=== PATIENT | female | born 1935 | race Caucasian/White ===

== ENCOUNTER 2019-02-24 19:04 | Inpatient (IN) | payer OTHER ==
[2019-02-24 20:11] LABS: Absolute Lymphocytes (CBC) 0.6 K/uL (0.7-4.9); Absolute Monocytes 0.6 K/uL (0.1-1.3); Absolute Neutrophil 8.1 K/uL (1.8-8.0); Basophils % 0.5 % (0-1.3); Eosinophils % 0.1 % (0-4.4); Hematocrit 39.3 % (36.0-45.0); Lymphocytes % 6.2 % (15.3-44.8); MPV 7.6 fL (7.6-11.3); RBC Red Blood Cell Count 4.33 M/uL (3.86-4.86)
--- NOTE | 2019-02-24 20:12 | RAD REPORT ---
EXAM DESCRIPTION: RAD - Chest Single View - 02/24/2019 7:56 pm CLINICAL HISTORY: COUGH Chest pain. COMPARISON: Chest Pa And Lat (2 Views) dated 07/08/2017; CHEST PA AND LAT 2 VIEW dated 08/23/2012 FINDINGS: Portable technique limits examination quality. Emphysematous changes are present throughout the lungs, unchanged. The heart is normal in size. No di splaced fractures. IMPRESSION: Prominent COPD.
--- NOTE | 2019-02-24 20:16 | ER ---
Nurse's Notes [facility] Name: Junito James Age: 83 yrs Sex: Female : 1935 Arrival Date: 02/24/2019 Time: 19:09 Bed 28 Private MD: Diagnosis: Pneumonia in diseases classified elsewhere;Hypoxemia Presentation: 02/24 19:12 Presenting complaint: Patient states: Productive cough, chills, low grade fever for 2 aj days. Transition of care: patient was not received from another setting of care. Onset of symptoms was February 22, 2019. Risk Assessment: Do you want to hurt yourself or someone else? Patient reports no desire to harm self or others. Initial Sepsis Screen: Does the patient meet any 2 criteria? HR > 90 bpm. Does the patient have a suspected source of infection? Yes: Productive cough/pneumonia. Care prior to arrival: None. 19:12 Method Of Arrival: Wheelchair aj 19:12 Acuity: SAUMYA 3 aj Triage Assessment: 19:14 General: Appears in no apparent distress. comfortable, Behavior is calm, cooperative, aj appropriate for age. Pain: Denies pain. Neuro: Level of Consciousness is awake, alert, obeys commands, Oriented to person, place, time, situation, Appropriate for age. Respiratory: Reports cough that is productive, Airway is patent Respiratory effort is even, unlabored, Respiratory pattern is regular, symmetrical. Derm: Skin is intact, Skin is dry, Skin is normal, Skin temperature is hot. Historical: - Allergies: 19:14 No Known Allergies; aj - Immunization history:: Adult Immunizations up to date. - Social history:: Smoking status: unknown. - Ebola Screening: : Patient negative for fever greater than or equal to 101.5 degrees Fahrenheit, and additional compatible Ebola Virus Disease symptoms. Screenin:32 Abuse screen: Denies threats or abuse. Nutritional screening: No deficits noted. jd3 Tuberculosis screening: No symptoms or risk factors identified. Fall Risk Ambulatory Aid- Crutches/Cane/Walker (15 pts). Gait- Weak (10 pts.). Mental Status- Oriented to own ability (0 pts). Total Deras Fall Scale indicates Low Risk Score (25-44 pts). Fall prevention measures have been instituted. Side Rails Up X 2 Placed close to Nursing Station Frequent Obs/Assesments occuring Family Present and informed to notify staff if they need to leave bedside. Assessment: 19:27 General: Appears uncomfortable, ill, Behavior is calm, cooperative, appropriate for jd3 age, Reports fatigue for 2-3 days, cough for 3 days. Pain: Complains of pain in head, and gerneralized pain. Quality of pain is described as aching. Neuro: Level of Consciousness is awake, alert, obeys commands, Oriented to person, place, time, situation. Cardiovascular: Heart tones S1 S2 present Capillary refill < 3 seconds Patient's skin is warm and dry. Respiratory: Reports cough that is non-productive, persistent Airway is patent Respiratory effort is even, unlabored, Respiratory pattern is regular, symmetrical, Breath sounds with crackles bilaterally. Denies shortness of breath. GI: No signs and/or symptoms were reported involving the gastrointestinal system. : No signs and/or symptoms were reported regarding the genitourinary system. EENT: No signs and/or symptoms were reported regarding the EENT system. Derm: Skin is intact, Skin is dry, Skin is pale, Skin temperature is warm. Musculoskeletal: Circulation, motion, and sensation intact. Range of motion: intact in all extremities. 20:12 Reassessment: No changes from previously documented assessment. Patient and/or family jd3 updated on plan of care and expected duration. Pain level reassessed. Patient is alert, oriented x 3, equal unlabored respirations, skin warm/dry/pink. family leaving. 20:37 Reassessment: D dimer 1128, told dr moon. jd3 21:16 Reassessment: Patient appears in no apparent distress at this time. Patient and/or jd3 family updated on plan of care and expected duration. Pain level reassessed. Patient is alert, oriented x 3, equal unlabored respirations, skin warm/dry/pink. pt resting in bed with eyes closed, even and unlabored respirations, no distress noted at this time. 21:29 Reassessment: family at bedside. jd3 22:03 Reassessment: Patient appears in no apparent distress at this time. Patient and/or jd3 family updated on plan of care and expected duration. Pain level reassessed. Patient is alert, oriented x 3, equal unlabored respirations, skin warm/dry/pink. report given to Harper COLLINS. 22:23 Reassessment: Patient appears in no apparent distress at this time. Patient and/or jd3 family updated on plan of care and expected duration. Pain level reassessed. Patient is alert, oriented x 3, equal unlabored respirations, skin warm/dry/pink. pt transported to floor by stretcher with [facility]. Vital Signs: 19:14 BP 153 / 83; Pulse 127; Resp 20; Temp 99.3(O); Pulse Ox 97% on R/A; Weight 47.63 kg; aj Height 5 ft. 1 in. (154.94 cm); 19:24 Pulse Ox 89% on R/A; jd3 19:26 BP 170 / 83; Pulse 115; Resp 20 S; Pulse Ox 94% on 2 lpm NC; jd3 20:12 BP 177 / 71; Pulse 105; Resp 21 S; Pulse Ox 96% on 2 lpm NC; Pain 5/10; jd3 21:16 BP 171 / 76; Pulse 101; Resp 19 S; Pulse Ox 97% on 2 lpm NC; Pain 0/10; jd3 22:25 BP 151 / 75; Pulse 101; Resp 21 S; Pulse Ox 97% on 2 lpm NC; Pain 0/10; jd3 19:14 Body Mass Index 19.84 (47.63 kg, 154.94 cm) aj 19:24 pt placed on oxygen. provider notified. jd3 ED Course: 19:09 Patient arrived in ED. ag3 19:13 Triage completed. aj 19:14 Arm band placed on left wrist. Patient placed in an exam room. aj 19:24 Luis Lazar, DENNIS is Primary Nurse. jd3 19:32 Orlando Moon MD is Attending Physician. tw4 19:33 Patient has correct armband on for positive identification. Placed in gown. Bed in low jd3 position. Call light in reach. Side rails up X 1. Adult w/ patient. 19:55 XRAY CXR (1 view) In Process Unspecified. EDMS 20:00 Inserted saline lock: 20 gauge in left antecubital area, using aseptic technique. Blood jd3 collected. 20:14 Darío Delacruz MD is Hospitalizing Provider. tw4 22:04 No provider procedures requiring assistance completed. Patient admitted, IV remains in jd3 place. Administered Medications: 20:29 Not Given (Other Intervention Used): Rocephin - (cefTRIAXone) 1 grams IVPB once over 30 jd3 mins; (mix in 50 mL NS) 20:30 Drug: Rocephin 1 grams Route: IV; Rate: calculated rate; Site: left antecubital; jd3 20:32 Follow up: Response: No adverse reaction; IV Status: Completed infusion; IV Intake: [id number] 20:32 Drug: LevaQUIN 500 mg Volume: 100 ml; Route: IVPB; Infused Over: 60 mins; Site: left jd3 antecubital; 21:19 Follow up: Response: No adverse reaction; IV Status: Completed infusion; IV Intake: jd3 100ml Intake: 20:32 IV: 10ml; Total: 10ml. jd3 21:19 IV: 100ml; Total: 110ml. jd3 Outcome: 20:15 Decision to Hospitalize by Provider. tw4 22:04 Admitted to Tele accompanied by tech, via stretcher, room 427, with oxygen, with chart, jd3 Report called to Harper COLLINS 22:04 Condition: stable 22:04 Instructed on the need for admit, Demonstrated understanding of instructions. 22:26 Patient left the ED. jd3 Signatures: Dispatcher [employer] EDDorys Alvarenga RN RN aj Davies, Jonathon, RN RN jd3 Wadley, Terrence, MD MD tw4 Antonia Allan ag3 Corrections: (The following items were deleted from the chart) 21:30 20:12 Reassessment: No changes from previously documented assessment. Patient and/or jd3 family updated on plan of care and expected duration. Pain level reassessed. Patient is alert, oriented x 3, equal unlabored respirations, skin warm/dry/pink. jd3
--- NOTE | 2019-02-24 20:16 | EDPHYS ---
Physician Documentation [facility] Name: Junito James Age: 83 yrs Sex: Female : 1935 Arrival Date: 02/24/2019 Time: 19:09 Bed 28 Private MD: ED Physician Orlando Rodríguez HPI: 02/25 07:12 This 83 yrs old Female presents to ER via Wheelchair with complaints of tw4 Cough, Dizziness. 07:12 The patient or guardian reports cough. Onset: The symptoms/episode began/occurred 1 tw4 week(s) ago. Severity of symptoms: At their worst the symptoms were moderate, in the emergency department the symptoms are unchanged. Modifying factors: The symptoms are alleviated by nothing, the symptoms are aggravated by nothing. The patient has not experienced similar symptoms in the past. Historical: - Allergies: 02/24 19:14 No Known Allergies; aj - Immunization history:: Adult Immunizations up to date. - Social history:: Smoking status: unknown. - Ebola Screening: : Patient negative for fever greater than or equal to 101.5 degrees Fahrenheit, and additional compatible Ebola Virus Disease symptoms. ROS: 02/25 07:12 Constitutional: Negative for fever, chills, and weight loss, Eyes: Negative for injury, tw4 pain, redness, and discharge, Cardiovascular: Negative for chest pain, palpitations, and edema, Abdomen/GI: Negative for abdominal pain, nausea, vomiting, diarrhea, and constipation, Back: Negative for injury and pain, Neuro: Negative for headache, weakness, numbness, tingling, and seizure, Psych: Negative for depression, anxiety, suicide ideation, homicidal ideation, and hallucinations. Respiratory: Positive for cough. Exam: 07:12 Constitutional: This is a well developed, well nourished patient who is awake, alert, tw4 and in no acute distress. Head/Face: Normocephalic, atraumatic. Chest/axilla: Normal chest wall appearance and motion. Nontender with no deformity. No lesions are appreciated. Cardiovascular: Regular rate and rhythm with a normal S1 and S2. No gallops, murmurs, or rubs. Normal PMI, no JVD. No pulse deficits. 07:12 Respiratory: the patient does not display signs of respiratory distress, Respirations: normal, Breath sounds: rhonchi, that are moderate, are heard in the right posterior middle lobe and right posterior lower lobe. Vital Signs: 02/24 19:14 BP 153 / 83; Pulse 127; Resp 20; Temp 99.3(O); Pulse Ox 97% on R/A; Weight 47.63 kg; aj Height 5 ft. 1 in. (154.94 cm); 19:24 Pulse Ox 89% on R/A; jd3 19:26 BP 170 / 83; Pulse 115; Resp 20 S; Pulse Ox 94% on 2 lpm NC; jd3 20:12 BP 177 / 71; Pulse 105; Resp 21 S; Pulse Ox 96% on 2 lpm NC; Pain 5/10; jd3 21:16 BP 171 / 76; Pulse 101; Resp 19 S; Pulse Ox 97% on 2 lpm NC; Pain 0/10; jd3 22:25 BP 151 / 75; Pulse 101; Resp 21 S; Pulse Ox 97% on 2 lpm NC; Pain 0/10; jd3 19:14 Body Mass Index 19.84 (47.63 kg, 154.94 cm) aj 19:24 pt placed on oxygen. provider notified. jd3 MDM: 19:32 Patient medically screened. 4 02/25 07:12 Differential Diagnosis: Obstructed Airway Influenza. Data reviewed: vital signs, EMS tw4 record. Counseling: I had a detailed discussion with the patient and/or guardian regarding: the historical points, exam findings, and any diagnostic results supporting the discharge/admit diagnosis. Medical screen evaluation completed. EMTALA emergency medical condition absent. Physician consultation: Darío Delacruz MD regarding admission, need to come to ED to see patient, and will see patient in ED. Admission orders: after a detailed discussion of the patient's condition and case, the admit orders are written by me. 02/24 19:37 Order name: Blood Culture Adult (2) 02/24 19:37 Order name: BMP 02/24 19:37 Order name: CBC with Diff 02/24 19:37 Order name: Ckmb 02/24 19:37 Order name: CPK 02/24 19:37 Order name: D-Dimer 02/24 19:37 Order name: Hepatic Function 02/24 19:37 Order name: Lipase 02/24 19:37 Order name: Magnesium tw4 02/24 19:37 Order name: NT PRO-BNP tw4 02/24 19:37 Order name: PT-INR tw4 02/24 19:37 Order name: Ptt, Activated tw4 02/24 19:37 Order name: Troponin (emerg Dept Use Only) tw4 02/24 20:14 Order name: Manual Differential EDMS 02/24 19:37 Order name: XRAY CXR (1 view) tw4 02/24 19:37 Order name: EKG; Complete Time: 19:39 tw4 02/24 19:37 Order name: Cardiac monitoring; Complete Time: 20:10 tw4 02/24 19:37 Order name: EKG - Nurse/Tech; Complete Time: 20:10 tw4 02/24 21:07 Order name: Basic Metabolic Panel EDMS 02/24 21:07 Order name: Basic Metabolic Panel EDMS 02/24 21:07 Order name: CBC with Automated Diff EDMS 02/24 21:07 Order name: CBC with Automated Diff EDMS 02/24 21:07 Order name: NT PRO-BNP EDMS 02/24 21:07 Order name: NT PRO-BNP EDMS 02/24 21:07 Order name: Troponin I EDMS 02/24 21:07 Order name: Troponin I EDMS 02/24 21:07 Order name: Troponin I EDMS 02/24 19:37 Order name: IV Saline Lock; Complete Time: 20:10 tw4 02/24 19:37 Order name: Labs collected and sent; Complete Time: 20:10 tw4 02/24 19:37 Order name: O2 Per Protocol; Complete Time: 20:10 tw4 02/24 19:37 Order name: O2 Sat Monitoring; Complete Time: 20:10 tw4 Administered Medications: 02/24 20:29 Not Given (Other Intervention Used): Rocephin - (cefTRIAXone) 1 grams IVPB once over 30 jd3 mins; (mix in 50 mL NS) 20:30 Drug: Rocephin 1 grams Route: IV; Rate: calculated rate; Site: left antecubital; jd3 20:32 Follow up: Response: No adverse reaction; IV Status: Completed infusion; IV Intake: [id number] 20:32 Drug: LevaQUIN 500 mg Volume: 100 ml; Route: IVPB; Infused Over: 60 mins; Site: left jd3 antecubital; 21:19 Follow up: Response: No adverse reaction; IV Status: Completed infusion; IV Intake: jd3 100ml Disposition: 02/24/19 20:15 Hospitalization ordered by Darío Delacruz for Inpatient Admission. Preliminary diagnosis are Pneumonia in diseases classified elsewhere, Hypoxemia. - Bed requested for Telemetry/MedSurg (Inpatient). - Status is Inpatient Admission. jd3 - Condition is Fair. - Problem is new. - Symptoms are unchanged. UTI on Admission? No Signatures: Dispatcher [employer] EDMS Dorys Nicolas, RN RN aj Luis Lazar RN RN jd3 Orlando Rodríguez MD MD tw4 Hakan Griffiths RN RN mg2 Corrections: (The following items were deleted from the chart) 21:30 20:15 Hospitalization Ordered by Darío Delacruz MD for Inpatient Admission. Preliminary mg2 diagnosis is Pneumonia in diseases classified elsewhere; Hypoxemia. Bed requested for Telemetry/MedSurg (Inpatient). Status is Inpatient Admission. Condition is Fair. Problem is new. Symptoms are unchanged. UTI on Admission? No. tw4 22:26 21:30 02/24/2019 20:15 Hospitalization Ordered by Darío Delacruz MD for Inpatient jd3 Admission. Preliminary diagnosis is Pneumonia in diseases classified elsewhere; Hypoxemia. Bed requested for Telemetry/MedSurg (Inpatient). Status is Inpatient Admission. Condition is Fair. Problem is new. Symptoms are unchanged. UTI on Admission? No. mg2
[2019-02-24 20:30] LABS: ALT/SGPT 19 U/L (12-78); AST/SGOT 22 U/L (15-37); Albumin 3.6 g/dL (3.4-5.0); Alkaline Phosphatase 74 U/L (45-117); BUN Blood Urea Nitrogen 21 mg/dL (7-18); Bicarbonate 27 mmol/L (21-32); Bilirubin Direct 0.1 mg/dL (0-0.2); Bilirubin Total 0.5 mg/dL (0.2-1.0); CKMB Creatine Kinase MB < 1.0 ng/mL (0.3-3.6); Creatine Phosphokinase 59 U/L (26-192); Glucose Level 118 mg/dL (74-106); Lipase 151 U/L (73-393); Magnesium 1.5 mg/dL (1.8-2.4); NT PRO-BNP 133 pg/mL (<450); Potassium 3.9 mmol/L (3.5-5.1); Protein, Total 7.8 g/dL (6.4-8.2); Sodium Level 137 mmol/L (136-145); Troponin (Emerg Dept Use Only) < 0.02 ng/mL (0.0-0.045)
[2019-02-24 20:35] LABS: Protime INR 1.16
[2019-02-24] MEDS ORDERED: CEFTRIAXONE/SWI 1gm 1 GM/10 ML SYR ONE (20:36)
[2019-02-24] MEDS ORDERED: Levofloxacin500mg IV 500 MG/100 ML BAG IV ONE (20:36)
[2019-02-24 20:48] LABS: Blood Morphology Comment NOT SEEN (NOT SEEN); Platelet Estimate ADEQ
[2019-02-24] MEDS ORDERED: ALBUTEROL 2.5 MG/3 ML NEB SOL NEB PRN (21:05)
[2019-02-24] MEDS ORDERED: ACETAMINOPHEN 500 MG TAB PO PRN (21:05)
[2019-02-24] MEDS ORDERED: IPRATROPIUM BROM 0.5MG/2.5ML NEB PRN (21:05)
[2019-02-25 05:34] LABS: Absolute Lymphocytes (CBC) 1.1 K/uL (0.7-4.9); Absolute Monocytes 0.8 K/uL (0.1-1.3); Basophils % 0.3 % (0-1.3); Hematocrit 36.8 % (36.0-45.0); Lymphocytes % 10.4 % (15.3-44.8); MPV 7.6 fL (7.6-11.3); Monocytes % 6.9 % (3.3-12.3); RBC Red Blood Cell Count 4.04 M/uL (3.86-4.86)
[2019-02-25 05:54] LABS: Potassium 3.8 mmol/L (3.5-5.1)
[2019-02-25] MEDS ORDERED: Levofloxacin500mg IV 500 MG/100 ML BAG IV SCH (06:00)
--- NOTE | 2019-02-25 07:16 | EKG ---
Test Date: 2019-02-24 Test Time: 20:13:42 Utilization Manager: RO MEASUREMENT RESULTS: Intervals: Rate: 102 WI: 148 QRSD: 66 QT: 306 QTc: 398 [place]: P: 35 WI: 148 QRS: 35 T: 62 INTERPRETIVE STATEMENTS: Sinus tachycardia Otherwise normal ECG Compared to ECG 05/14/2010 09:58:44 Sinus rhythm no longer present Electronically Signed On 02-25-19 07:15:29 CDT by Grady Dai
[2019-02-25] MEDS ORDERED: PNEUMOCOCCAL VACCINE 0.5 ML IMVAC ONE (08:00)
[2019-02-25] MEDS: ALBUTEROL 2.5 MG/3 ML NEB SOL NEB SCH ×3 (08:05→19:30)
[2019-02-25] MEDS: IPRATROPIUM BROM 0.5MG/2.5ML NEB SCH ×3 (08:05→19:30)
[2019-02-25] MEDS: METHYLPREDNISOLONE 40 MG INJ IV SCH ×2 (08:46→17:14)
[2019-02-25] MEDS: ENOXAPARIN 30 MG/0.3 ML SQ SCH (08:46)
[2019-02-25] MEDS ORDERED: CARVEDILOL 3.125 MG TAB PO ONE (11:01)
[2019-02-25] MEDS ORDERED: VALSARTAN 80 MG TAB PO ONE (11:02)
[2019-02-25] MEDS ORDERED: ASPIRIN EC 81 MG TAB PO ONE (11:02)
--- NOTE | 2019-02-25 16:33 | PN ---
Date of Progress Note: 02/25/2019 Subjective: The patient was seen this morning for followup. No new complaints or problems reported by her. Feels little better than yesterday. Objective: Vital Signs: Reviewed. HEENT: Unremarkable. Lungs: Bilateral good equal air entry. Presence of some scattered wheezing noted, better than yeste rday. Not using accessory muscles of respiration. The patient has rales in right lung field diffuse ly scattered all over right lung field and left lower lung field, but overall that is better today th an yesterday. Heart: Sounds normal. Abdomen: Soft. Bowel sounds normal. No guarding, rigidity, tenderness, or distention. Extremities: No leg edema. Laboratory Data: White count 11, hemoglobin 12.5, platelets 175. Sodium 137, potassium 3.8, chlorid e 100, bicarb 30, BUN 21, creatinine 1.06, glucose 106. Impression: 1.Pneumonia. 2.Acute exacerbation of chronic obstructive pulmonary disease. 3.Hypertension. Plan: We will go ahead and continue current medications. Home medications will be continued. Antib iotic, oxygen nebulizer treatment, and IV steroid will be continued. Physical therapy to help ambulate the patient. I will see her tomorrow for followup. Possible discharge to go home this week end depending on her condition. DANN/MODL Voice ID: [id number] Report ID: [id number]
[2019-02-25] MEDS: CARVEDILOL 3.125 MG TAB PO SCH (17:14)
[2019-02-25] MEDS: Levofloxacin 250mg IV 250 MG/50 ML BAG IV SCH (20:10)
--- NOTE | 2019-02-25 21:06 | HP ---
Date of Admission: 02/24/2019 Chief Complaint: Cough, congestion, shortness of breath. History Of Present Illness: An 83-year-old female patient who lives at home, got sick about 1 week a go with cough, chest congestion, coughing up some yellow to green colored mucus, shortness of breath, wheezing, very poor appetite, and she thought she will get better on her own. Did not seek any [facility] attention until today. She decided to come to emergency room. After she was evaluated in the ER , she was admitted to the hospital. I saw her in the emergency room. Her son was present with her a t bedside. Allergies: SHE IS ALLERGIC TO MEPERIDINE CAUSING NAUSEA, VOMITING, DIZZINESS. Medications: She takes Benicar 40 mg p.o. daily, carvedilol 3.125 mg twice a day, donepezil 5 mg cesar ly, aspirin daily, and calcium tablets daily. Review of Systems: Respiratory: As mentioned above. Constitutional: As mentioned above. All other systems reviewed and negative. Past Medical History: Hypertension, hyperlipidemia, diverticulosis, allergic rhinitis, osteoporosis. Past Surgical History: Tonsillectomy and surgery for benign thyroid nodule. Family History: COPD, stroke. Social History: Negative for smoking and alcohol use. Physical Examination: Vital Signs: When she first came in to emergency room, temperature 99.3, pulse 127, respiratory rate 20, blood pressure 153/83, oxygen saturation 89%, height 5 feet 1 inch, weight 105 pounds. General: The patient appears weaker than normal, ill appearing, not in any respiratory distress. HEENT: Head atraumatic, normocephalic. Conjunctivae nonerythematous. Sclerae white. Mouth, no thr ush or edema noted. Ears/Nose, no mass, lesion, discharge noted. Neck: Supple. No JVD, lymph nodes, bruit, thyromegaly noted. Lungs: Bilateral good equal entry. Presence of diffuse rales in entire right lung [place] and left l ower lung field with some wheezing scattered in both lung [place]. Heart: Normal heart sounds, no murmur or gallop. Abdomen: Soft, bowel sounds normal. No guarding, rigidity, tenderness, mass, hepatosplenomegaly, dis tention, or bruit noted. Extremities: No leg edema. No calf tenderness. Skin: No rash, ulcer, cellulitis. Lymphatics: No lymph node enlargement in neck, supraclavicular, infraclavicular region. Neuro: No focal neurological deficit. Chest: Unremarkable. External Genitalia: Deferred. Rectal: Deferred. Laboratory Data: White count 9.3, hemoglobin 13.3, platelets 176, 5 bands, 86% neutrophils. INR 1.1 6. D-dimer 1128. Sodium 137, potassium 3.9, chloride 99, bicarb 27, BUN 21, creatinine 1, glucose 1 18, magnesium 1.5. Liver function tests unremarkable. Troponin less than 0.02. Chest x-ray shows advanced COPD changes, and EKG sinus tachycardia. Impression: 1.Pneumonia. 2.Acute exacerbation of chronic obstructive pulmonary disease. 3.Hypertension. 4.Diverticulosis. 5.Hyperlipidemia. 6.Allergic rhinitis. 7.Osteoporosis. Plan: Admit the patient to hospital for further evaluation and management of this problem. The [facility] ent is appropriate for inpatient and is expected to spend 2 midnights in the hospital. Clinically, t he patient is behaving like pneumonia. Even though chest x-ray has not shown pneumonia, we will worr y about that as underlying possibility given the clinical picture. We will treat her with IV antibio tics, oxygen nebulizer treatment. We will also add IV steroids. Home medications will be continued, and we will consult Physical Therapy to help ambulate the patient. DVT prophylaxis will be given us ing Lovenox, and I will see her tomorrow for followup. Details and plan of treatment discussed with the patient and her son, who was at bedside. DANN/KHANH Voice ID: [id number]
[2019-02-26] MEDS: METHYLPREDNISOLONE 40 MG INJ IV SCH ×3 (00:34→17:03)
[2019-02-26] MEDS: ALBUTEROL 2.5 MG/3 ML NEB SOL NEB SCH ×4 (02:30→20:35)
[2019-02-26] MEDS: IPRATROPIUM BROM 0.5MG/2.5ML NEB SCH ×4 (03:30→20:35)
[2019-02-26 03:53] LABS: Urine Appearance CLEAR; Urine Bilirubin NEGATIVE (NEG); Urine Blood NEGATIVE (NEG); Urine Color YELLOW; Urine Glucose TRACE (NEG); Urine Protein NEGATIVE (NEG); Urine Urobilinogen 0.2 mg/dL (0.2-1.0)
[2019-02-26 03:55] LABS: Urine Microscopic Reflex NO UMIC
[2019-02-26] MEDS: CARVEDILOL 3.125 MG TAB PO SCH ×2 (05:11→17:03)
[2019-02-26] MEDS: VALSARTAN 80 MG TAB PO SCH (09:11)
[2019-02-26] MEDS: ENOXAPARIN 30 MG/0.3 ML SQ SCH (09:12)
[2019-02-26] MEDS: ASPIRIN EC 81 MG TAB PO SCH (09:31)
--- NOTE | 2019-02-26 10:42 | RAD REPORT ---
EXAM DESCRIPTION: CT - Thorax Wo Con - 02/26/2019 10:30 am CLINICAL HISTORY: sob COMPARISON: February 24, 2019 chest x-ray TECHNIQUE: Computed axial tomography of the chest was obtained. Contrast was not requested. All CT scans are performed using dose optimization technique as appropriate and may include automated exposure control or mA/KV adjustment according to patient size. FINDINGS: The evaluation of mediastinum, renetta and vessels is limited secondary to lack of IV contras t administration. Mild patchy right lower lobe opacities. Minimal tree-in-bud opacities within the lingula and right mi ddle lobe. Minimal traction bronchiectasis right middle lobe No mediastinal or hilar lymphadenopathy is seen. A pleural effusion is not present. IMPRESSION: Mild patchy right lower lobe opacities consistent with pneumonia Mild to moderate COPD
[2019-02-26] MEDS: DULERA 100/5 (MOMETASONE/FORMOTEROL) INHALER IH SCH ×2 (11:18→21:19)
--- NOTE | 2019-02-26 16:31 | PN ---
Date of Progress Note: 02/26/2019 Subjective: The patient was seen this morning for followup. She reported that she feels better toda y than yesterday, but still has lot of cough and chest congestion. Denies any new complaints. Objective: Vital Signs: Reviewed. HEENT: Unremarkable. Lungs: Bilateral good equal air entry, not in respiratory distress. Presence of rales diffusely sca ttered almost over entire right lung and left lower lung present, unchanged from yesterday. Heart: Sounds normal. Abdomen: Soft. Bowel sounds normal. No guarding, rigidity, tenderness, or distention. Extremities: No leg edema. Impression: 1.Pneumonia. 2.Acute exacerbation of chronic obstructive pulmonary disease. 3.Rule out bronchiectasis. 4.Hypertension. Plan: We will go ahead and get a CAT scan of the chest without contrast. Continue current nebulizer treatment, antibiotics. I will go ahead and start her on inhaler, Dulera. I will see her tomorrow for followup. DANN/MODL Voice ID: [id number] Report ID: [id number]
[2019-02-26] MEDS: Levofloxacin 250mg IV 250 MG/50 ML BAG IV SCH (21:19)
[2019-02-27] MEDS: METHYLPREDNISOLONE 40 MG INJ IV SCH (01:30)
[2019-02-27] MEDS: ALBUTEROL 2.5 MG/3 ML NEB SOL NEB SCH ×4 (01:50→19:35)
[2019-02-27] MEDS: IPRATROPIUM BROM 0.5MG/2.5ML NEB SCH ×4 (01:50→19:35)
[2019-02-27] MEDS: CARVEDILOL 3.125 MG TAB PO SCH ×2 (06:16→17:01)
[2019-02-27] MEDS: predniSONE 20 MG TAB PO SCH ×2 (07:59→20:18)
[2019-02-27] MEDS: ASPIRIN EC 81 MG TAB PO SCH (07:59)
[2019-02-27] MEDS: VALSARTAN 80 MG TAB PO SCH (07:59)
[2019-02-27] MEDS: ENOXAPARIN 30 MG/0.3 ML SQ SCH (08:00)
[2019-02-27] MEDS: DULERA 100/5 (MOMETASONE/FORMOTEROL) INHALER IH SCH ×2 (08:00→20:17)
--- NOTE | 2019-02-27 14:52 | PN ---
Date of Progress Note: 02/27/2019 Subjective: The patient was seen this morning for followup. No new complaints or problems reported by the patient. She feels better today than yesterday. Objective: Vital Signs: Reviewed. HEENT: Unremarkable. Lungs: Bilateral good equal entry. Presence of rales noted in the left lung base and right lower chatterjee lf to lower 1/3 lung field. Not using accessory muscles of respiration. Heart: Sounds normal. Abdomen: Soft. Bowel sounds normal. No guarding, rigidity, tenderness, or distention. Extremities: No leg edema. Laboratory Data: Yesterday's CT scan shows evidence of pneumonia and bronchiectasis. Impression: 1.Pneumonia. 2.Bronchiectasis. 3.Acute exacerbation of chronic obstructive pulmonary disease. 4.Hypertension. Plan: We will continue current medications. The patient's lung findings are improving with current antibiotic nebulizer treatment and inhaler, which was Dulera, which was started yesterday. Plan is t o possibly discharge her to go home tomorrow depending on her condition. DANN/MODL Voice ID: [id number] Report ID: [id number]
[2019-02-27] MEDS: Levofloxacin 250mg IV 250 MG/50 ML BAG IV SCH (20:17)
[2019-02-28] MEDS: IPRATROPIUM BROM 0.5MG/2.5ML NEB SCH (01:20)
[2019-02-28] MEDS: ALBUTEROL 2.5 MG/3 ML NEB SOL NEB SCH (01:20)
[2019-02-28 04:47] VITALS: O2SAT 98
[2019-02-28] MEDS: CARVEDILOL 3.125 MG TAB PO SCH (05:33)
[2019-02-28 08:19] VITALS: BP 198/90; TEMP 97.3
[2019-02-28] MEDS ORDERED: predniSONE 20 MG TAB PO SCH (09:00)
[2019-02-28] MEDS: VALSARTAN 80 MG TAB PO SCH (09:04)
[2019-02-28] MEDS: ENOXAPARIN 30 MG/0.3 ML SQ SCH (09:05)
[2019-02-28] MEDS: ASPIRIN EC 81 MG TAB PO SCH (09:05)
[2019-02-28] MEDS: DULERA 100/5 (MOMETASONE/FORMOTEROL) INHALER IH SCH (09:09)
--- NOTE | 2019-03-01 06:18 | DS ---
Date of Discharge: 02/28/2019 Disposition: Discharged to go home. Physical Examination: HEENT: Unremarkable. Lungs: Bilateral good equal air entry. Minimum rales noted in the right lower lung field. Left glenn e, clear. Heart: Sounds normal. Abdomen: Soft, bowel sounds normal. No guarding, rigidity, tenderness, distention. Extremities: No leg edema. Laboratory Data: Initial white count on 02/24/2019 was 9.3, hemoglobin 13.3, platelets 177. Initial sodium 137, potassium 3.9, chloride 99, bicarb 27, BUN 21, creatinine 1.0, glucose 118. Liver funct ion tests unremarkable. Magnesium low at 1.5. Troponin less than 0.02. Chest x-ray shows changes o f COPD. CAT scan of the chest without contrast shows right lower lobe pneumonia with bronchiectasis. Hospital Course: An 83-year-old female patient admitted to the hospital after she came into emergenc y room with 1-week history of cough, congestion, feeling weak, short of breath. Please see dictated H and P for more information. After the patient was evaluated in the ER, she was admitted to the [facility] with pneumonia and acute exacerbation of COPD problem. She was started on IV antibiotics, oxyg en, nebulizer treatment, IV steroid. Overall condition slowly improved. I was concerned about possi bility of bronchiectasis also and we did obtain CAT scan of the chest. It did show evidence of some bronchiectasis in the right lower lobe with some small area of infiltrate. She has responded well to the treatment provided. Initially, she was on IV steroids. Subsequently, we change it to oral ster oid. She is ambulating well. We also started her on Dulera inhaler. Today, she was medically stabl e for discharge. Her home medications were continued. Final Diagnoses: 1.Pneumonia. 2.Acute exacerbation of COPD. 3.Bronchiectasis. 4.Hypertension. 5.Hyperlipidemia. 6.Diverticulosis. 7.Allergic rhinitis. 8.Osteoporosis. Discharge Medications And Instructions: 1.Continue prior home medications. 2.Levaquin 250 mg daily for 1 week. 3.Prednisone 10 mg, the patient will take 2 tablets daily for 2 days, then 1 tablet daily for 2 days , then 1/2 tablet daily for 2 days, then stop. 4.Take Dulera inhaler 2 puffs by mouth 2 times a day, rinse mouth with water after use. 5.Follow up in my office in 1 week. DANN/MODL Voice ID: [id number] Report ID: [id number]
== END 2019-02-28 11:37 | disposition home or self-care (01) | DRG 190 ==
LOC: ER 19:04 → ERHOLD 21:04 → 4TH 22:04
PROVIDERS: ADMIT Internal Medicine; ATTEND Internal Medicine
DX: J44.0 Chronic obstructive pulmonary disease with (acute) lower respiratory infection (principal); J18.9 Pneumonia, unspecified organism; J47.0 Bronchiectasis with acute lower respiratory infection; J44.1 Chronic obstructive pulmonary disease with (acute) exacerbation; I10 Essential (primary) hypertension; E78.5 Hyperlipidemia, unspecified; K57.90 Diverticulosis of intestine, part unspecified, without perforation or abscess without bleeding; M81.0 Age-related osteoporosis without current pathological fracture; Z23 Encounter for immunization
CPT/HCPCS: 36415; 71045; 71250; 80048; 80076; 81003; 82550; 82553; 83690; 83735; 83880; 84484; 85025; 85379; 85610; 85730; 87040; 87070; 87205; 90471; 90670; 93005; 94760; 96365; 96375; 97162; 99285; J0696; J1650; J2920; J7512; J7606

== ENCOUNTER 2019-05-13 14:39 | Emergency (ER) | payer OTHER ==
--- NOTE | 2019-05-13 16:16 | RAD REPORT ---
EXAM DESCRIPTION: CT - CTHCSPWOC - 05/13/2019 3:52 pm CLINICAL HISTORY: Headache, neck pain, neck stiffness COMPARISON: None. TECHNIQUE: Axial 5 mm thick images of the head were obtained. Axial 2 mm thick images of the cervic al spine were obtained with sagittal and coronal reconstruction images generated and reviewed. All CT scans are performed using dose optimization technique as appropriate and may include automated exposure control or mA/KV adjustment according to patient size. FINDINGS: No intracranial hemorrhage, mass, edema or acute intracranial finding. No suspicion for ac dorian infarction. No cortical edema or sulcal effacement. Mild to moderate atrophy changes are present. Chronic ischemic changes are seen with focal lacunar type infarctions seen in the each basal ganglia . Ventricles are in proportion to the volume loss. Mastoid air cells and paranasal sinuses are clear. No globe or orbit abnormality seen. Arterial tree calcifications are present. There is a 14 millimet er oval low-density area along the occipital region of the superior sagittal sinus. There is concavit y of the inner table of the skull at this level. This does not represent venous sinus thrombosis. Thi s is most likely a large arachnoid granulation Cervical bodies are normal in height. There is slight anterior subluxation of C7 on T1. Disc space na rrowing is present at all levels except C2-3. Advanced degenerative changes are present at the dens C 1 level. Posterior transverse ligament is thickened but does not encroach significantly into the cent ral canal. Significant facet degenerative change seen. Multiple levels show uncovertebral joint hyper trophy. Mild foraminal encroachment changes are seen at C3-4 and C4-5. Prominent right foraminal sten osis at C5-6. No fracture or acute bony abnormality. Central canal detail is inherently limited. No paraspinal mass or hematoma. No right-sided thyroid tissue identified. This is presumed surgically absent. Nodularity of the left-side thyroid gland is seen not fully assessed on this study. IMPRESSION: Atrophy and chronic ischemic changes are present but no hemorrhage, edema or acute intra cranial finding. Prominent cervical spine degenerative change present without acute finding identified. Central canal detail is inherently limited. Canal is borderline to mildly stenotic in the mid and lower cervical sp ine. 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 Left lobe is nodular and can be fo llowed with sonography as clinical findings warrant.
[2019-05-13 16:24] LABS: Absolute Lymphocytes (CBC) 1.2 K/uL (0.7-4.9); Basophils % 0.6 % (0-1.3); Hematocrit 37.9 % (36.0-45.0); Lymphocytes % 20.5 % (15.3-44.8); MPV 7.7 fL (7.6-11.3); Protime INR 0.98; RBC Red Blood Cell Count 4.21 M/uL (3.86-4.86)
[2019-05-13] MEDS ORDERED: DIAZEPAM 2 MG TABLET ONE (16:25)
[2019-05-13] MEDS ORDERED: FENTANYL CITR 100 MCG/2 ML ONE (16:25)
[2019-05-13 16:32] LABS: ALT/SGPT 30 U/L (12-78); AST/SGOT 24 U/L (15-37); Albumin 3.7 g/dL (3.4-5.0); Alkaline Phosphatase 82 U/L (45-117); BUN Blood Urea Nitrogen 29 mg/dL (7-18); Bicarbonate 30 mmol/L (21-32); Bilirubin Direct 0.1 mg/dL (0-0.2); Bilirubin Total 0.4 mg/dL (0.2-1.0); Glucose Level 86 mg/dL (74-106); Magnesium 1.8 mg/dL (1.8-2.4); NT PRO-BNP 166 pg/mL (<450); Potassium 3.9 mmol/L (3.5-5.1); Sodium Level 141 mmol/L (136-145); Troponin (Emerg Dept Use Only) < 0.02 ng/mL (0.0-0.045)
--- NOTE | 2019-05-13 17:32 | EDPHYS ---
Physician Documentation [facility] Name: Junito James Age: 83 yrs Sex: Female : 1935 Arrival Date: 05/13/2019 Time: 14:43 Bed 6 Private MD: Darío Delacruz ED Physician Adria Jeter HPI: 05/13 15:30 This 83 yrs old Female presents to ER via Ambulatory with complaints of Stiff cp Neck. 15:30 The patient or guardian complains of decreased range of motion, pain, that is acute, cp tenderness, stiffness. The symptoms are located on the left lateral neck. Onset: The symptoms/episode began/occurred 1 month(s) ago. Context: The neck injury/problem resulted from from unknown cause. Associated signs and symptoms: Pertinent positives: left shoulder pain, Pertinent negatives: fever, headache, numbness, weakness. Modifying factors: the symptoms are aggravated by movement, turning head to right. Severity of symptoms: in the emergency department the symptoms are unchanged, despite home interventions. Historical: - Allergies: 14:47 No Known Allergies; la1 - PMHx: 14:47 Hypertension; la1 - Immunization history:: Adult Immunizations up to date. - Social history:: Smoking status: Patient/guardian denies using tobacco. - Ebola Screening: : No symptoms or risks identified at this time. ROS: 15:35 Constitutional: Negative for body aches, chills, fever, poor PO intake. cp 15:35 Eyes: Negative for injury, pain, redness, and discharge. cp 15:35 ENT: Negative for drainage from ear(s), ear pain, sore throat, difficulty swallowing, difficulty handling secretions. 15:35 Neck: Positive for pain with movement, pain at rest, stiffness, tenderness, of the left lateral neck, Negative for injury or acute deformity, bony tenderness. 15:35 Cardiovascular: Negative for chest pain, edema, palpitations. 15:35 Respiratory: Negative for cough, shortness of breath, wheezing. 15:35 Abdomen/GI: Negative for abdominal pain, nausea, vomiting, and diarrhea, constipation, anorexia, black/tarry stool, rectal bleeding. 15:35 Back: Negative for pain at rest, pain with movement, radiated pain. 15:35 : Negative for urinary symptoms. 15:35 Skin: Negative for cellulitis, rash. 15:35 Neuro: Negative for altered mental status, dizziness, headache, numbness, tingling, weakness. 15:35 All other systems are negative. Exam: 15:42 ECG was reviewed by the Attending Physician. cp 15:45 Constitutional: The patient appears in no acute distress, alert, awake, cp non-diaphoretic, non-toxic, well developed, well nourished. 15:45 Head/Face: Normocephalic, atraumatic. cp 15:45 Eyes: Periorbital structures: appear normal, Conjunctiva: normal, no exudate, no injection, Sclera: no appreciated abnormality, Lids and lashes: appear normal, bilaterally. 15:45 ENT: External ear(s): are unremarkable, Ear canal(s): are normal, clear, TM's: are normal, no evidence of bulging, no erythema, Nose: is normal, Mouth: Lips: moist, Oral mucosa: pink and intact, moist, Posterior pharynx: is normal, airway is patent, no erythema, no exudate. 15:45 Neck: External neck: swelling, is not appreciated, tenderness, that is moderate, left lateral neck, ROM/movement: pain, that is moderate, with rotation to the right, Meningeal signs: are not present, nuchal rigidity, is not appreciated, Lymph nodes: no appreciated lymphadenopathy. 15:45 Chest/axilla: Inspection: normal, Palpation: is normal, no crepitus, no tenderness. 15:45 Cardiovascular: Rate: normal, Rhythm: regular, Pulses: Pulses are 2+ in right radial artery and left radial artery. Edema: is not appreciated, JVD: is not appreciated. 15:45 Respiratory: the patient does not display signs of respiratory distress, Respirations: normal, no use of accessory muscles, no retractions, no splinting, no tachypnea, labored breathing, is not present, Breath sounds: are clear throughout, no decreased breath sounds, no stridor, no wheezing. 15:45 Abdomen/GI: Inspection: abdomen appears normal, Palpation: abdomen is soft and non-tender, in all quadrants. 15:45 Back: pain, is absent, ROM is normal. 15:45 Skin: no rash present. 15:45 Neuro: Orientation: to person, place \T\ time. Mentation: is normal, Motor: moves all fours, strength is normal, Sensation: no obvious gross deficits. Vital Signs: 14:47 BP 212 / 64; Pulse 69; Resp 16; Temp 97.5; Pulse Ox 98% on R/A; Weight 47.63 kg; Height la1 5 ft. 1 in. (154.94 cm); 15:55 BP 182 / 66; Pulse 66; Pulse Ox 98% on R/A; sg 17:20 BP 177 / 66; Pulse 18; Resp 17 S; Temp 97.5; Pulse Ox 98% on R/A; sg 14:47 Body Mass Index 19.84 (47.63 kg, 154.94 cm) la1 MDM: 15:28 Patient medically screened. edna 16:00 Differential diagnosis: Cervical Disc Herniation Cervical Discogenic Pain Cervical cp Raiculopathy Spinal Cord Compression Spondylolisthesis Thoracic Outlet Syndrome torticollis. 17:30 Data reviewed: vital signs, nurses notes, lab test result(s), EKG, radiologic studies, cp CT scan, plain films. 17:30 Test interpretation: by ED physician or midlevel provider: ECG, plain radiologic cp studies. Counseling: I had a detailed discussion with the patient and/or guardian regarding: the historical points, exam findings, and any diagnostic results supporting the discharge/admit diagnosis, the presence of at least one elevated blood pressure reading (>120/80) during this emergency department visit, lab results, radiology results, the need for outpatient follow up, a family practitioner, to return to the emergency department if symptoms worsen or persist or if there are any questions or concerns that arise at home. Response to treatment: the patient's symptoms have mildly improved after treatment, and as a result, I will discharge patient. 05/13 15:25 Order name: Basic Metabolic Panel; Complete Time: 17:02 cp 05/13 15:25 Order name: CBC with Diff; Complete Time: 16:27 cp 05/13 16:27 Interpretation: Reviewed. 05/13 15:25 Order name: LFT's; Complete Time: 17:02 cp 05/13 15:25 Order name: Magnesium; Complete Time: 17:02 cp 05/13 15:25 Order name: NT PRO-BNP; Complete Time: 17:02 cp 05/13 15:25 Order name: PT-INR; Complete Time: 16:27 cp 05/13 16:28 Interpretation: Reviewed. cp 05/13 15:25 Order name: Troponin (emerg Dept Use Only); Complete Time: 17:02 cp 05/13 15:25 Order name: EKG; Complete Time: 15:26 cp 05/13 15:25 Order name: Cardiac monitoring; Complete Time: 17:38 cp 05/13 15:25 Order name: EKG - Nurse/Tech; Complete Time: 17:39 cp 05/13 15:39 Order name: CT Head C Spine; Complete Time: 16:27 cp 05/13 15:25 Order name: IV Saline Lock; Complete Time: 17:39 cp 05/13 15:25 Order name: Labs collected and sent; Complete Time: 17:39 cp 05/13 15:25 Order name: O2 Per Protocol; Complete Time: 17:39 cp 05/13 15:25 Order name: O2 Sat Monitoring; Complete Time: 17:39 cp EC:42 Rate is 68 beats/min. Rhythm is regular. SD interval is normal. QRS interval is normal. cp QT interval is normal. T waves are Flattened in lead aVL. Interpreted by me. Reviewed by me. Administered Medications: 15:55 Drug: fentaNYL (PF) 25 mcg Route: IVP; Site: right antecubital; sg 17:00 Follow up: Response: No adverse reaction; Pain is decreased sg 15:55 Drug: Diazepam 2 mg Route: PO; sg 17:22 Follow up: Response: No adverse reaction sg 17:40 Drug: TORadol - Ketorolac 15 mg Route: IVP; Site: right antecubital; sg 18:15 Follow up: Response: No adverse reaction; Pain is decreased sg Disposition: 05/14 09:16 Co-signature as Attending Physician, Adria Jeter MD I agree with the assessment and edna plan of care. Disposition: 05/13/19 17:31 Discharged to Home. Impression: Muscle spasm - Left posterior neck. - Condition is Stable. - Discharge Instructions: Muscle Cramps and Spasms. - Prescriptions for Diazepam 2 mg Oral Tablet - take 1 tablet by ORAL route every 8 hours As needed; 15 tablet. Ibuprofen 800 mg Oral Tablet - take 0.5 tablet by ORAL route every 8 hours As needed take with food; 30 tablet. Tylenol- Codeine #3 300-30 mg Oral Tablet - take 1 tablet by ORAL route every 8 hours As needed; 15 tablet. - Medication Reconciliation Form, Thank You Letter, Antibiotic Education, Prescription Opioid Use form. - Follow up: Darío Delacruz MD; When: 2 - 3 days; Reason: Recheck today's complaints. - Problem is new. - Symptoms have improved. Signatures: Dispatcher [employer] EDMS Dameon Raines RN RN sg Anderson, Corey, MD MD cha Attema, Lee, RN RN la1 Adria Anna PA PA cp Herrera [facility]3 Corrections: (The following items were deleted from the chart) 05/13 17:53 17:31 05/13/2019 17:31 Discharged to Home. Impression: Muscle spasm - Left posterior dh3 neck. Condition is Stable. Forms are Medication Reconciliation Form, Thank You Letter, Antibiotic Education, Prescription Opioid Use. Follow up: Darío Delacruz; When: 2 - 3 days; Reason: Recheck today's complaints. Problem is new. Symptoms have improved. cp
--- NOTE | 2019-05-13 17:32 | ER ---
Nurse's Notes [facility] Name: Junito James Age: 83 yrs Sex: Female : 1935 Arrival Date: 05/13/2019 Time: 14:43 Bed 6 Private MD: Darío Delacruz Diagnosis: Muscle spasm-Left posterior neck Presentation: 05/13 14:46 Presenting complaint: Patient states: my neck has been stiff for about a month. la1 Transition of care: patient was not received from another setting of care. Onset of symptoms was May 13, 2019. Risk Assessment: Do you want to hurt yourself or someone else? Patient reports no desire to harm self or others. Initial Sepsis Screen: Does the patient meet any 2 criteria? No. Patient's initial sepsis screen is negative. Does the patient have a suspected source of infection? No. Patient's initial sepsis screen is negative. Care prior to arrival: None. 14:46 Method Of Arrival: Ambulatory la1 14:46 Acuity: SAUMYA 4 la1 Historical: - Allergies: 14:47 No Known Allergies; la1 - PMHx: 14:47 Hypertension; la1 - Immunization history:: Adult Immunizations up to date. - Social history:: Smoking status: Patient/guardian denies using tobacco. - Ebola Screening: : No symptoms or risks identified at this time. Screenin:00 Abuse screen: Denies threats or abuse. Denies injuries from another. Nutritional sg screening: No deficits noted. Tuberculosis screening: No symptoms or risk factors identified. Never had TB. Fall Risk None identified. Assessment: 14:47 Neuro: Denies weakness blurred vision dizziness, numbness headache photophobia la1 diplopia. Cardiovascular: Denies chest pain, diaphoresis, fatigue, lightheadedness, nausea, palpitations, shortness of breath, syncope, vomiting. Vital Signs: 14:47 BP 212 / 64; Pulse 69; Resp 16; Temp 97.5; Pulse Ox 98% on R/A; Weight 47.63 kg; Height la1 5 ft. 1 in. (154.94 cm); 15:55 BP 182 / 66; Pulse 66; Pulse Ox 98% on R/A; sg 17:20 BP 177 / 66; Pulse 18; Resp 17 S; Temp 97.5; Pulse Ox 98% on R/A; sg 14:47 Body Mass Index 19.84 (47.63 kg, 154.94 cm) la1 ED Course: 14:43 Patient arrived in ED. mr 14:44 Darío Delacruz MD is Private Physician. mr 14:47 Triage completed. la1 14:47 Arm band placed on right wrist. la1 15:19 Dameon Raines, RN is Primary Nurse. sg 15:23 Adria Anna PA is PHCP. cp 15:23 Adria Jeter MD is Attending Physician. cp 15:45 Patient has correct armband on for positive identification. Bed in low position. Call sg light in reach. Side rails up X2. Pulse ox on. NIBP on. 15:54 CT Head C Spine In Process Unspecified. EDMS 16:10 Initial lab(s) drawn, by me, sent to lab. Inserted saline lock: 22 gauge in right sg antecubital area, using aseptic technique. Blood collected. 17:28 Darío Delacruz MD is Referral Physician. cp 17:40 No provider procedures requiring assistance completed. IV discontinued, intact, sg bleeding controlled, No redness/swelling at site. Pressure dressing applied. Administered Medications: 15:55 Drug: fentaNYL (PF) 25 mcg Route: IVP; Site: right antecubital; sg 17:00 Follow up: Response: No adverse reaction; Pain is decreased sg 15:55 Drug: Diazepam 2 mg Route: PO; sg 17:22 Follow up: Response: No adverse reaction sg 17:40 Drug: TORadol - Ketorolac 15 mg Route: IVP; Site: right antecubital; sg 18:15 Follow up: Response: No adverse reaction; Pain is decreased sg Outcome: 17:31 Discharge ordered by . cp 17:45 Discharged to home ambulatory, with family. sg 17:45 Condition: good 17:45 Discharge instructions given to patient, family, Instructed on discharge instructions, follow up and referral plans. medication usage, safety practices, Demonstrated understanding of instructions, follow-up care, medications, Prescriptions given X 3. 17:53 Patient left the ED. 3 Signatures: Dispatcher [employer] EDMS Dameon Raines RN RN Alisia KrishnamurthyChristian RN RN la1 Adria Anna PA PA cp Herrera, Deanna 3
[2019-05-13] MEDS ORDERED: KETOROLAC 30 MG/ML INJ ONE (17:40)
[2019-05-13 20:23] VITALS: BP 212/64; TEMP 97.5; O2SAT 98
--- NOTE | 2019-05-14 15:51 | EKG ---
Test Date: 2019-05-13 Test Time: 15:35:16 Raw Shellfish Preparer: HONG MEASUREMENT RESULTS: Intervals: Rate: 68 VT: 178 QRSD: 78 QT: 388 QTc: 412 Hope: P: 44 VT: 178 QRS: 35 T: 63 INTERPRETIVE STATEMENTS: Normal sinus rhythm Normal ECG Compared to ECG 02/24/2019 20:13:42 Sinus tachycardia no longer present Electronically Signed On 05-14-19 15:50:22 CDT by Jose Elias Batres
== END 2019-05-13 17:53 | disposition home or self-care (01) ==
LOC: ER 14:39
DX: M62.838 Other muscle spasm (principal)
CPT/HCPCS: 93005; 85025; 80048; 36415; 83735; 85610; 80076; 84484; 83880; 70450; 72125; 96375; 96374; 99284; J3010

== ENCOUNTER 2022-08-30 18:54 | Emergency (ER) | payer OTHER ==
--- OUTSIDE RECORDS SUMMARY | 2022-08-30 18:57 | XMS REPORT | Continuity of Care Document ---
:1935 Author Organization [facility] t Address [address] [place] [address] Care Team Providers Name Role Phone Delacruz Darío Clark Primary Care Physician Joe Lee Attending Clinician PARKER MARAVILLA Attending Clinician Unavailable Parker Harmon Attending Clinician Doctor Unassigned, [employer] Attending Clinician Unavailable Colt Nicholson Attending Clinician COLT NORMAN Attending Clinician Unavailable Mandi Mccarthy Attending Clinician Payers Payer Name Policy Type Policy Number Effective Date Expiration Date [facility] [id number] 2021 [facility] 00:00:00 PPO HUMA[employer] MEDICARE [id number] 2018 00:00:00 Problems Condition Condition Condition Status Onset Resolution Last Treating Co mments Source Name Details Category Date Date Treatment Clinician Date No known No known Disease Unive rs active active ity of problems problems [facility] Dementia Dementia Problem Active 2022-05-10 Memoria (disorder) (disorder) 23:05:53 l Active Scott Problem 05/10/2022 [facility] Hypertensi Hypertens Problem Active 2022-05-10 Memoria ve maddy 23:05:53 l disorder, disorder, Herm simona systemic systemic arterial arterial (disorder) (disorder) Active Problem 05/10/2022 [facility] Poor Poor Problem Active 2022-05-10 Memor ia short-term short-term 23:05:53 l memory memory Scott (finding) (finding) Active Problem 05/10/2022 [facility] Specific Specific Problem Active 2022-05-10 Memoria reading reading 23:05:53 l disorder disorder Justice diehl (disorder) (disorder) Active Problem 05/10/2022 [facility] Allergies, Adverse Reactions, Alerts This patient has no known allergies or adverse reactions. Social History Social Habit Start Date Stop Date Quantity Comments Source Exposure to 2022-02-10 2022-02-20 Not sure [facility] SARS-CoV-2 00:00:00 15:55:00 [facility] (event) [place] Alcohol intake 2022-02-20 2022-02-20 Lifetime [facility] 00:00:00 00:00:00 non-drinker [facility] (finding) [place] Social History 2021-12-13 2021-12-13 Jace galicia 20:11:05 20:11:05 Tobacco use and 2019-08-12 2019-08-12 Never used Universit y of exposure 00:00:00 00:00:00 [facility] Sex Assigned At [birth year] [facility] of 00:00:00 00:00:00 [facility] Smoking Status Start Date Stop Date Source Never smoker [facility] Medications Ordered Filled Start Stop Current Ordering Indication Dosage Frequency Signature Comments Components Source Medication Medication Date Date Medication? Clinician (SIG) Name Name sherrill 2021- No [id number] 40mg [facility] 02-20 9100 ity of acetonide 23:00: 21:45 [place] (KENALOG) 00 :00 Medical injection Branch 40 mg triamcinolo 2021- No [id number] 40mg 40 mg, [facility] 02-20 9100 Intramuscu ity of acetonide 23:00: 21:45 [place], ONCE, [place] ([place] 00 :00 1 dose, On Medi naresh injection Mally 02/20/22 Bran ch 40 mg at 1800, Routine memantine 5 Yes 5 mg = 1 Me moria mg oral 5-13 tab, PO, l tablet 20:36: BID, # 60 Justice n 00 tab, 3 Refill(s), Pharmacy: [facility] #[id number], 146.05, cm, 01/31/22 15:16:00 CDT, Height, 50, kg, 01/31/22 15:16:00 CDT, Weight amLODIPine Yes TAKE 1 Memor ia 10 mg oral 3-25 TABLET BY l tablet 20:12: MOUTH [place] 00 EVERY DAY donepezil Yes TAKE 1 Memori a 10 mg oral 3-25 TABLET BY l tablet 20:12: MOUTH Scott 00 DAILY carvedilol Yes TAKE 1 Memor ia 3.125 mg 3-25 TABLET BY l oral tablet 20:12: MOUTH Karla nn 00 TWICE DAILY memantine 5 Yes TAKE 1 Indra kat mg oral 3-25 TABLET BY l tablet 20:12: MOUTH Scott 00 TWICE DAILY ketoconazol 2018-09 Yes [id number] Apply to Univers e 2 % cream 22 area(s) ity o f 00:00: daily. [address] fluconazole 2018-09 Yes [id number] Daily for Univers 150 mg 22 tinea rash ity of tablet 00:00: of ear [address] triamcinolo 2018-09 Yes [id number] Apply to Univers ne -22 area(s) 3 ity of acetonide 00:00: (three) [place] 0.1 % 00 times Medical ointment daily. Branch amLODIPine 2018-09 Yes TK 1 T PO Un toshia 5 mg tablet 0-21 QD ity of 00:00: [address] Branch carvedilol 2018-09 Yes TK 1 T PO Un toshia 3.125 mg 0-21 BID ity of tablet 00:00: [address] Branch donepezil 5 2018-09 Yes TK 1 T PO U nivers mg tablet 0-21 QD ity of 00:00: [address] Immunizations Ordered Immunization Filled Immunization Date Status Commen ts Source Name Name [id number] 2021-01-25 Completed Indra rial [id number] 00:00:00 Herm simona Vital Signs Vital Name Observation Time Observation Value Comments Source Systolic blood 2022-02-20 21:09:00 192 mm[Hg] Univer sity of [facility] Branch Diastolic blood 2022-02-20 21:09:00 75 mm[Hg] Unive rsity of [place] pressure [facility] Heart rate 2022-02-20 21:09:00 70 /min [facility] Oxygen saturation 2022-02-20 21:09:00 97 /min Uni [facility] in Arterial blood [facility] anch by Pulse oximetry Body height 2022-02-20 20:59:00 147.3 cm [facility] Body weight 2022-02-20 20:59:00 49.034 kg [facility] BMI 2022-02-20 20:59:00 22.59 kg/m2 [facility] Systolic (mm Hg) 2022-01-31 20:02:00 Indra rial [place] Diastolic (mm Hg) 2022-01-31 20:02:00 Mem orial [place] Heart Rate 2022-01-31 20:02:00 [facility] [place] Height 2022-01-31 20:02:00 146.05 cm [facility] [place] Weight 2022-01-31 20:02:00 [facility] [place] BMI Calculated 2022-01-31 20:02:00 Memori al [place] Systolic (mm Hg) 2021-12-13 20:09:00 Indra rial [place] Diastolic (mm Hg) 2021-12-13 20:09:00 Mem orial [place] Heart Rate 2021-12-13 20:09:00 [facility] [place] Respitory Rate 2021-12-13 20:09:00 Memori al [place] Height 2021-12-13 20:09:00 147.32 cm [facility] [place] Weight 2021-12-13 20:09:00 [facility] Scott BMI Calculated 2021-12-13 20:09:00 Memori al [place] Procedures This patient has no known procedures. Encounters Start End Encounter Admission Attending Care Care Encounter Source Date/Time Date/Time Type Type Clinicians Facility Department ID 2022-05-08 2022-05-08 Ambulatory nullFlavo MNA [id number] Memoria 20:15:00 20:15:00 Pre-Reg r Neurology 03 l [place] 2022-05-08 2022-05-08 Outpatient MHIE JIN [id number] Memoria 15:15:00 15:15:00 03 l [place] 2022-05-08 2022-05-08 Outpatient ISIDRA Lee [facility] [id number] 15:15:00 15:15:00 Joe Bessie Chin 2022-02-20 2022-02-20 Outpatient R RENITA [facility] [id number] Univers 16:00:00 17:03:11 PARKER italexus [facility] 2022-02-20 2022-02-20 [facility] [id number] Univers 16:00:00 17:03:11 Visit Parker [facility] [id number] it y of [place] 4.2.7.2.686 Malcolm as RAN?BLEA [id number] De maciel PATEL [address] [facility] OFFICE [facility] 2022-02-20 2022-02-20 Orders Doctor KYLAH [id number] Univers 00:00:00 00:00:00 Only Unassigned, SILVIANO [id number] ity of [employer] [facility] 4.2.7.2.686 Malcolm as [id number] [address] 2022-02-12 2022-02-12 [facility] [id number] Univers 19:54:21 23:59:[address] [facility] [id number] ity of [place] 4.2.7.2.686 Malcolm as RAN?BLEA [id number] De maciel PATEL [address] [facility] 2022-02-12 2022-02-12 Outpatient R EMERSON [facility] [id number] Univers 19:54:21 23:59:00 [facility] 2022-02-12 2022-02-12 [facility] [id number] Univers 19:20:00 20:06:[address] [facility] [id number] ity of [place] [id number] Malcolm as RAN?BLEA [id number] De maciel PATEL [address] [facility] 2022-02-12 2022-02-12 Letter Doctor KYLAH [id number] Univers 00:00:00 00:00:00 (Out) Unassigned, SILVIANO 350.1.13.10 ity of [facility] [id number] Malcolm as [id number] [address] 2022-01-31 2022-02-01 Outpatient nullFlavo MNA [id number] Memoria 20:00:00 04:59:59 r Neurology 02 nhan Agudeloann 2022-01-31 2022-01-31 Outpatient ISIDRA Lee [id number] 15:00:00 23:59:59 Joe 02 Giuseppe 2022-01-31 2022-01-31 Outpatient MHIE MHIE [id number] Memoria 15:00:00 15:00:00 02 nhan AgudeloScott 2021-12-13 2021-12-14 Outpatient nullFlavo MNA [id number] Memoria 20:00:00 04:59:59 r Neurology 01 nhan Sultana [place] 2021-12-13 2021-12-13 Outpatient ISIDRA Lee [id number] 15:00:00 23:59:59 Joe 01 Giuseppe 2021-12-13 2021-12-13 Outpatient MHIE MHIE [id number] Memoria 15:00:00 15:00:00 01 nhan AgudeloScott 2021-10-11 2021-10-11 Outpatient R [facility] [id number] Univers 16:20:00 16:20:00 ity [facility] 2021-07-26 2021-07-26 Ambulatory nullFlavo MNA [id number] Memoria 20:15:00 20:15:00 Pre-Reg r Neurology 00 l Sultana [place] 2021-07-26 2021-07-26 Outpatient MHIE MHIE [id number] Memoria 15:15:00 15:15:00 00 nhan [place] 2021-07-26 2021-07-26 Outpatient ISIDRA Lee [id number] 15:15:00 15:15:00 Joe 00 Giuseppe Results This patient has no known results.
[2022-08-30] MEDS ORDERED: NA CHLORIDE 0.9% 500 ML ONE (19:52)
[2022-08-30] MEDS ORDERED: ONDANSETRON 4 MG/2 ML VIAL ONE (19:52)
[2022-08-30] MEDS ORDERED: FAMOTIDINE 20 MG/2 ML VIAL IV ONE (19:52)
[2022-08-30 20:22] LABS: Absolute Lymphocytes (CBC) 1.2 K/uL (0.7-4.9); Hematocrit 38.9 % (36.0-45.0); Lymphocytes % 14.2 % (15.3-44.8); RBC Red Blood Cell Count 4.32 M/uL (3.86-4.86)
[2022-08-30 21:10] LABS: Albumin 4.1 g/dL (3.4-5.0); Potassium 3.2 mmol/L (3.5-5.1)
[2022-08-30 21:19] LABS: Bilirubin Total 0.6 mg/dL (0.2-1.0); Protein, Total 7.9 g/dL (6.4-8.2)
[2022-08-30] MEDS ORDERED: POTASSIUM CL SA 10 MEQ TAB PO ONE (21:37)
--- NOTE | 2022-08-30 22:28 | EDPHYS ---
Physician Documentation [facility] Name: Junito James Age: 86 yrs Sex: Female : 1935 Arrival Date: 08/30/2022 Time: 19:12 Bed 7 Private MD: Darío Delacruz ED Physician Pipo Leon HPI: 08/30 20:23 This 86 yrs old Female presents to ER via Ambulatory with complaints of Vomiting. kdr 20:23 The patient presents to the emergency department with nausea, that is mild, that is kdr moderate, vomiting, that is intermittent, diarrhea, that is intermittent, abdominal pain, of the abdomen diffusely, described as achy. Onset: The symptoms/episode began/occurred gradually, 2 day(s) ago. Possible causes: bad food exposure, possibly let sit out too long, possibly old or stale. The symptoms are aggravated by nothing. The symptoms are alleviated by nothing. food , prescription meds. Associated signs and symptoms: Pertinent positives: diarrhea, nausea, vomiting. Severity of symptoms: At their worst the symptoms were mild just prior to arrival, in the emergency department the symptoms are unchanged. The patient has not experienced similar symptoms in the past. The patient has not recently seen a physician. Historical: - Allergies: 20:11 No Known Allergies; as6 - Home Meds: 20:39 memantine 5 mg oral tab 1 tab 2 times per day [Active]; donepezil 10 mg oral tab 1 tab as6 once daily [Active]; carvedilol 3.125 mg oral tab 1 tab 2 times per day [Active]; amlodipine 10 mg tab 1 tab once daily [Active]; - PMHx: 20:11 Hypertension; as6 - PSHx: 20:39 None; as6 - Immunization history:: Client reports receiving the 2nd dose of the Covid vaccine, Flu vaccine is up to date. - Social history:: Smoking status: Patient denies any tobacco usage or history of. ROS: 20:23 Constitutional: Negative for fever, chills, and weight loss, Eyes: Negative for injury, kdr pain, redness, and discharge, ENT: Negative for injury, pain, and discharge, Neck: Negative for injury, pain, and swelling, Cardiovascular: Negative for chest pain, palpitations, and edema, Respiratory: Negative for shortness of breath, cough, wheezing, and pleuritic chest pain, Back: Negative for injury and pain, : Negative for injury, bleeding, discharge, and swelling, MS/Extremity: Negative for injury and deformity, Skin: Negative for injury, rash, and discoloration, Neuro: Negative for headache, weakness, numbness, tingling, and seizure activity. Psych: Negative for depression, anxiety, suicide ideation, homicidal ideation, and hallucinations, Allergy/Immunology: Negative for hives, rash, and allergies, Endocrine: Negative for neck swelling, polydipsia, polyuria, polyphagia, and marked weight changes, Hematologic/Lymphatic: Negative for swollen nodes, abnormal bleeding, and unusual bruising. 20:23 Abdomen/GI: Positive for nausea and vomiting, nausea, vomiting, and diarrhea, Negative for constipation, hematemesis, rectal pain, rectal bleeding, bowel incontinence. Exam: 20:23 Constitutional: This is a well developed, well nourished patient who is awake, alert, kdr and in no acute distress. Head/Face: Normocephalic, atraumatic. Eyes: Pupils equal round and reactive to light, extra-ocular motions intact. Lids and lashes normal. Conjunctiva and sclera are non-icteric and not injected. Cornea within normal limits. Periorbital areas with no swelling, redness, or edema. Neck: Trachea midline, no thyromegaly or masses palpated, and no cervical lymphadenopathy. Supple, full range of motion without nuchal rigidity, or vertebral point tenderness. No Meningismus. Chest/axilla: Normal chest wall appearance and motion. Nontender with no deformity. No lesions are appreciated. Cardiovascular: Regular rate and rhythm with a normal S1 and S2. No gallops, murmurs, or rubs. Normal PMI, no JVD. No pulse deficits. Respiratory: Lungs have equal breath sounds bilaterally, clear to auscultation and percussion. No rales, rhonchi or wheezes noted. No increased work of breathing, no retractions or nasal flaring. Abdomen/GI: Soft, non-tender, with normal bowel sounds. No distension or tympany. No guarding or rebound. No evidence of tenderness throughout. Back: No spinal tenderness. No costovertebral tenderness. Full range of motion. Skin: Warm, dry with normal turgor. Normal color with no rashes, no lesions, and no evidence of cellulitis. MS/ Extremity: Pulses equal, no cyanosis. Neurovascular intact. Full, normal range of motion. Neuro: Awake and alert, GCS 15, oriented to person, place, time, and situation. Cranial nerves II-XII grossly intact. Motor strength 5/5 in all extremities. Sensory grossly intact. Cerebellar exam normal. Normal gait. Psych: Awake, alert, with orientation to person, place and time. Behavior, mood, and affect are within normal limits. Vital Signs: 19:50 BP 165 / 70; Pulse 88; Resp 18 S; Temp 98.2(O); Pulse Ox 99% on R/A; Weight 46.72 kg as6 (R); Height 5 ft. 1 in. (154.94 cm) (R); Pain 0/10; 20:39 BP 155 / 73; Pulse 86; Resp 16 S; Pulse Ox 99% on R/A; as6 22:05 BP 159 / 70; Pulse 88; Resp 18 S; Pulse Ox 100% on R/A; as6 22:37 Resp 97; Pulse Ox 99% on R/A; kd3 19:50 Body Mass Index 19.46 (46.72 kg, 154.94 cm) as6 MDM: 20:23 Data reviewed: vital signs, nurses notes, lab test result(s), radiologic studies. kdr Counseling: I had a detailed discussion with the patient and/or guardian regarding: the historical points, exam findings, and any diagnostic results supporting the discharge/admit diagnosis, lab results, radiology results, the need for outpatient follow up. 22:28 Patient medically screened. kdr 08/30 19:41 Order name: CBC with Diff; Complete Time: 21:28 kdr 08/30 19:41 Order name: CMP; Complete Time: 21:28 kdr 08/30 21:28 Order name: PO challenge; Complete Time: 21:57 kdr Administered Medications: 19:55 Drug: Zofran (Ondansetron) 4 mg Route: IVP; Site: right forearm; as6 19:55 Drug: Pepcid (famotidine) 20 mg Route: IVP; Site: right forearm; as6 19:55 Drug: NS 0.9% 500 ml Route: IV; Rate: bolus; Site: right forearm; as6 20:44 CANCELLED (Inappropriate at this time): Chipid (HYDROmorphone) 1 mg IVP once as6 21:57 Drug: Potassium Chloride Liquid 40 mEq Route: PO; as6 Disposition Summary: 08/30/22 22:28 Discharge Ordered Location: Home kdr Problem: new kdr Symptoms: have improved kdr Condition: Stable kdr Diagnosis - Nausea with vomiting, unspecified kdr - Diarrhea, unspecified kdr Followup: kdr - With: Darío Delacruz MD - When: 2 - 3 days - Reason: If symptoms return, Further diagnostic work-up, Recheck today's complaints, Continuance of care, Re-evaluation by your physician Discharge Instructions: - Discharge Summary Sheet kdr - Nausea and Vomiting, Adult, [id number] kdr - Diarrhea, Adult, [id number] kdr Forms: - Medication Reconciliation Form kdr - Thank You Letter kdr Prescriptions: - Zofran 4 mg Oral Tablet - take 1 tablet by ORAL route every 4-6 hours As needed; 12 tablet; Refills: 0, kdr Product Selection Permitted Signatures: Dispatcher [employer] EDMS Pipo Leon MD MD kdr Eamon Carranza RN RN as6 Corrections: (The following items were deleted from the chart) 20:44 20:39 Dilaudid (HYDROmorphone) 1 mg IVP once ordered. kdr as6
--- NOTE | 2022-08-30 22:28 | ER ---
Nurse's Notes [facility] Name: Junito James Age: 86 yrs Sex: Female : 1935 Arrival Date: 08/30/2022 Time: 19:12 Bed 7 Private MD: Darío Delacruz Diagnosis: Nausea with vomiting, unspecified;Diarrhea, unspecified Presentation: 08/30 19:50 Chief complaint: Patient states: "I've been throwing up for about 2 days". Coronavirus as6 screen: At this time, the client does not indicate any symptoms associated with coronavirus-19. Ebola Screen: No symptoms or risks identified at this time. Initial Sepsis Screen: Does the patient meet any 2 criteria? No. Patient's initial sepsis screen is negative. Does the patient have a suspected source of infection? No. Patient's initial sepsis screen is negative. Risk Assessment: Do you want to hurt yourself or someone else? Patient reports no desire to harm self or others. Onset of symptoms was August 28, 2022. 19:50 Method Of Arrival: Ambulatory as6 19:50 Acuity: SAUMYA 3 as6 20:04 Chief complaint:. kd3 Historical: - Allergies: 20:11 No Known Allergies; as6 - Home Meds: 20:39 memantine 5 mg oral tab 1 tab 2 times per day [Active]; donepezil 10 mg oral tab 1 tab as6 once daily [Active]; carvedilol 3.125 mg oral tab 1 tab 2 times per day [Active]; amlodipine 10 mg tab 1 tab once daily [Active]; - PMHx: 20:11 Hypertension; as6 - PSHx: 20:39 None; as6 - Immunization history:: Client reports receiving the 2nd dose of the Covid vaccine, Flu vaccine is up to date. - Social history:: Smoking status: Patient denies any tobacco usage or history of. Screenin:11 Abuse screen: Denies threats or abuse. Denies injuries from another. Nutritional as6 screening: No deficits noted. Tuberculosis screening: No symptoms or risk factors identified. Fall Risk None identified. Assessment: 20:11 General: Appears in no apparent distress. Behavior is calm, cooperative. Pain: Denies as6 pain. Neuro: Level of Consciousness is awake, alert, obeys commands, Oriented to person, place, time, situation. Cardiovascular: Capillary refill < 3 seconds Patient's skin is warm and dry. Respiratory: Respiratory effort is even, unlabored. GI: Reports nausea, vomiting. 20:39 Reassessment: Patient appears in no apparent distress at this time. Patient and/or as6 family updated on plan of care and expected duration. Pain level reassessed. 22:05 Reassessment: Patient appears in no apparent distress at this time. Patient and/or as6 family updated on plan of care and expected duration. Pain level reassessed. Patient is alert, oriented x 3, equal unlabored respirations, skin warm/dry/pink. Patient states symptoms have improved. Vital Signs: 19:50 BP 165 / 70; Pulse 88; Resp 18 S; Temp 98.2(O); Pulse Ox 99% on R/A; Weight 46.72 kg as6 (R); Height 5 ft. 1 in. (154.94 cm) (R); Pain 0/10; 20:39 BP 155 / 73; Pulse 86; Resp 16 S; Pulse Ox 99% on R/A; as6 22:05 BP 159 / 70; Pulse 88; Resp 18 S; Pulse Ox 100% on R/A; as6 22:37 Resp 97; Pulse Ox 99% on R/A; kd3 19:50 Body Mass Index 19.46 (46.72 kg, 154.94 cm) as6 ED Course: 19:12 Patient arrived in ED. as 19:12 Darío Delacruz MD is Private Physician. as 19:14 Pipo Leon MD is Attending Physician. kdr 19:19 Eamon Carranza, DENNIS is Primary Nurse. as6 19:55 Inserted saline lock: 20 gauge in right forearm, using aseptic technique. Blood kd3 collected. 20:11 Triage completed. as6 20:11 Arm band placed on. as6 20:11 Bed in low position. Call light in reach. Side rails up X 1. Adult w/ patient. as6 22:27 Darío Delacruz MD is Referral Physician. kdr 22:37 No provider procedures requiring assistance completed. IV discontinued, intact, kd3 bleeding controlled, No redness/swelling at site. Pressure dressing applied. Administered Medications: 19:55 Drug: Zofran (Ondansetron) 4 mg Route: IVP; Site: right forearm; as6 19:55 Drug: Pepcid (famotidine) 20 mg Route: IVP; Site: right forearm; as6 19:55 Drug: NS 0.9% 500 ml Route: IV; Rate: bolus; Site: right forearm; as6 20:44 CANCELLED (Inappropriate at this time): Dilaudid (HYDROmorphone) 1 mg IVP once as6 21:57 Drug: Potassium Chloride Liquid 40 mEq Route: PO; as6 Medication: 22:37 VIS not applicable for this client. kd3 Outcome: 22:28 Discharge ordered by . kdr 22:37 Discharged to home with family. kd3 22:37 Condition: stable 22:37 Discharge instructions given to patient, family, Instructed on discharge instructions, follow up and referral plans. Demonstrated understanding of instructions, follow-up care, medications, Prescriptions given X 1. 22:40 Patient left the ED. kd3 Signatures: Pipo Leon MD MD kdr Martinez, Amelia as Slawson, Ashby, RN RN as6 Karis Altman RN RN kd3
[2022-08-31 00:33] VITALS: TEMP 98.2
[2022-08-31 00:36] VITALS: BP 159/70
[2022-08-31 00:37] VITALS: O2SAT 99
== END 2022-08-30 22:40 | disposition home or self-care (01) ==
LOC: ER 18:54
DX: R11.2 Nausea with vomiting, unspecified (principal); R19.7 Diarrhea, unspecified; I10 Essential (primary) hypertension
CPT/HCPCS: 85025; 36415; 80053; 96375; 96374; 99284; J7040; J2405

== ENCOUNTER 2022-08-31 19:17 | Emergency (ER) | payer OTHER ==
--- OUTSIDE RECORDS SUMMARY | 2022-08-31 19:21 | XMS REPORT | Continuity of Care Document ---
:1935 Author Organization [facility] t Address [address] [place] [address] Care Team Providers Name Role Phone Jayme Darío Clark Primary Care Physician Joe Lee Attending Clinician PARKER MARAVILLA Attending Clinician Unavailable Parker Harmon Attending Clinician Doctor Unassigned, [place] Attending Clinician Unavailable Colt Nicholson Attending Clinician COLT NORMAN Attending Clinician Unavailable Mandi Mccarthy Attending Clinician Payers Payer Name Policy Type Policy Number Effective Date Expiration Date S [facility] [id number] [address] [facility] 00:00:00 PPO [employer] MEDICARE [id number] 2018 00:00:00 Problems Condition Condition Condition Status Onset Resolution Last Treating Co mments Source Name Details Category Date Date Treatment Clinician Date Specific Specific Problem Active 2022-05-10 Memoria reading reading 23:05:53 l disorder disorder Justice n (disorder) (disorder) Active Problem 05/10/2022 [facility] Dementia Dementia Problem Active 2022-05-10 Memoria (disorder) (disorder) 23:05:53 l Active Scott Problem 05/10/2022 [facility] Hypertensi Hypertens Problem Active 2022-05-10 Memoria ve maddy 23:05:53 l disorder, disorder, Herm simona systemic systemic arterial arterial (disorder) (disorder) Active Problem 05/10/2022 [facility] Poor Poor Problem Active 2022-05-10 Memor ia short-term short-term 23:05:53 l memory memory Scott (finding) (finding) Active Problem 05/10/2022 [facility] No known No known Disease Unive rs active active ity of problems problems [facility] Allergies, Adverse Reactions, Alerts This patient has no known allergies or adverse reactions. Social History Social Habit Start Date Stop Date Quantity Comments Source Exposure to 2022-02-10 2022-02-20 Not sure [facility] SARS-CoV-2 00:00:00 15:55:00 [facility] (event) [place] Alcohol intake 2022-02-20 2022-02-20 [facility] 00:00:00 00:00:00 non-drinker [facility] (finding) [place] Social History 2021-12-13 2021-12-13 [facility] tatiannasimona 20:11:05 20:11:05 Tobacco use and 2019-08-12 2019-08-12 Never used Universit y of exposure 00:00:00 00:00:00 [facility] Sex Assigned At [birth year] [facility] 00:00:00 00:00:00 [facility] Smoking Status Start Date Stop Date Source Never smoker [facility] Medications Ordered Filled Start Stop Current Ordering Indication Dosage Frequency Signature Comments Components Source Medication Medication Date Date Medication? Clinician (SIG) Name Name sherrill 2021- No [id number] 40mg [facility] 02-20 9100 ity of acetonide 23:00: 21:45 [place] (KENALOG) 00 :00 Medical injection Branch 40 mg triamcinolo 2021- No [id number] 40mg 40 mg, [facility] 02-20 9100 Intramuscu ity of acetonide 23:00: 21:45 [place], ONCE, [place] ([place] 00 :00 1 dose, On Medi naresh injection Mally 02/20/22 Bran ch 40 mg at 1800, Routine memantine 5 Yes 5 mg = 1 Me moria mg oral 5-13 tab, PO, l tablet 20:36: BID, # 60 Justice n 00 tab, 3 Refill(s), Pharmacy: [facility][id number], 146.05, cm, 01/31/22 15:16:00 CDT, Height, 50, kg, 01/31/22 15:16:00 CDT, Weight memantine 5 Yes 5 mg = 1 Me moria mg oral 5-13 tab, PO, l tablet 20:36: BID, # 60 Justice n 00 tab, 3 Refill(s), Pharmacy: [id number], 146.05, cm, 01/31/22 15:16:00 CDT, Height, 50, kg, 01/31/22 15:16:00 CDT, Weight memantine 5 Yes TAKE 1 Indra kat mg oral 3-25 TABLET BY l tablet 20:12: MOUTH [place] 00 TWICE DAILY amLODIPine Yes TAKE 1 Memor ia 10 mg oral 3-25 TABLET BY l tablet 20:12: MOUTH [place] 00 EVERY DAY donepezil Yes TAKE 1 Memori a 10 mg oral 3-25 TABLET BY l tablet 20:12: MOUTH [place] 00 DAILY amLODIPine Yes TAKE 1 Memor ia 10 mg oral 3-25 TABLET BY l tablet 20:12: MOUTH [place] 00 EVERY DAY donepezil Yes TAKE 1 Memori a 10 mg oral 3-25 TABLET BY l tablet 20:12: MOUTH Scott 00 DAILY carvedilol Yes TAKE 1 Memor ia 3.125 mg 3-25 TABLET BY l oral tablet 20:12: MOUTH Karla nn 00 TWICE DAILY memantine 5 Yes TAKE 1 Indra kat mg oral 3-25 TABLET BY l tablet 20:12: MOUTH [place] 00 TWICE DAILY carvedilol Yes TAKE 1 Memor ia 3.125 mg 3-25 TABLET BY l oral tablet 20:12: MOUTH Karla nn 00 TWICE DAILY ketoconazol 2018-09 Yes [id number] Apply to Univers e 2 % cream 10-12 area(s) ity o f 00:00: daily. [address] fluconazole 2018-09 Yes [id number] Daily for Univers 150 mg -22 tinea rash ity of tablet 00:00: of ear [address] triamcinolo 2018-09 Yes [id number] Apply to Univers ne 1-22 area(s) 3 ity of acetonide 00:00: (three) [place] 0.1 % 00 times Medical ointment daily. Branch amLODIPine 2018-09 Yes TK 1 T PO Un toshia 5 mg tablet 0-21 QD ity of 00:00: [place] 00 Medical Branch carvedilol 2018-09 Yes TK 1 T PO Un toshia 3.125 mg 0-21 BID ity of tablet 00:00: [place] [facility] donepezil 5 2018-09 Yes TK 1 T PO U nivers mg tablet 0-21 QD ity of 00:00: [place] 00 Medical Branch Immunizations Ordered Immunization Filled Immunization Date Status Commen ts Source Name Name [id number] 2021-01-25 Completed Indra rial [id number] 00:00:00 Herm simona [id number] 2021-01-25 Completed Indra rial [id number] 00:00:00 Herm simona Vital Signs Vital Name Observation Time Observation Value Comments Source Systolic blood 2022-02-20 21:09:00 192 mm[Hg] Univer [facility] Diastolic blood 2022-02-20 21:09:00 75 mm[Hg[facility] [place] Heart rate 2022-02-20 21:09:00 70 /min [facility] Oxygen saturation 2022-02-20 21:09:00 97 /min Uni [facility] in Arterial blood Medical Br anch by Pulse oximetry Body height 2022-02-20 20:59:00 147.3 cm [facility] Body weight 2022-02-20 20:59:00 49.034 kg [facility] BMI 2022-02-20 20:59:00 22.59 kg/m2 [facility] Systolic (mm Hg) 2022-01-31 20:02:00 Indra rianhan Chavez Diastolic (mm Hg) 2022-01-31 20:02:00 Chris Chavez Heart Rate 2022-01-31 20:02:00 [facility] Height 2022-01-31 20:02:00 146.05 cm [facility] Weight 2022-01-31 20:02:00 [facility] [place] BMI Calculated 2022-01-31 20:02:00 Memori al [place] Systolic (mm Hg) 2021-12-13 20:09:00 Indra manzano [place] Diastolic (mm Hg) 2021-12-13 20:09:00 Mem lila [place] Heart Rate 2021-12-13 20:09:00 [facility] [place] Respitory Rate 2021-12-13 20:09:00 Memori al [place] Height 2021-12-13 20:09:00 147.32 cm [facility] Scott Weight 2021-12-13 20:09:00 [facility] [place] BMI Calculated 2021-12-13 20:09:00 Memori al [place] Procedures This patient has no known procedures. Encounters Start End Encounter Admission Attending Care Care Encounter Source Date/Time Date/Time Type Type Clinicians Facility Department ID 2022-05-08 2022-05-08 Ambulatory nullFlavo MNA [id number] Memoria 20:15:00 20:15:00 Pre-Reg r Neurology 03 l Sultana Agudeloann 2022-05-08 2022-05-08 Ambulatory nullFlavo MNA [id number] Memoria 20:15:00 20:15:00 Pre-Reg r Neurology 03 l Sultana Agudeloann 2022-05-08 2022-05-08 Outpatient JIN ABDI [id number] Memoria 15:15:00 15:15:00 03 nhan AgudeloMarietta 2022-05-08 2022-05-08 Outpatient ISIDRA Lee MISCHER [id number] 15:15:00 15:15:00 Joe 03 Giuseppe 2022-02-20 2022-02-20 Outpatient Yamila MARAVILLA [facility] [id number] Univers 16:00:00 17:03:11 [facility] 2022-02-20 2022-02-20 Office Janell [facility] [id number] Univers 16:00:00 17:03:11 Visit [facility] [id number] it y of [place] 4.2.7.2.686 Malcolm as RAN?BLEA [id number] [address] MEDICAL OFFICE BUILDING 2022-02-20 2022-02-20 Orders Doctor KYLAH [id number] Univers 00:00:00 00:00:00 Only Unassigned, SILVIANO 350.1.13.10 ity of [place] [facility] 4.2.7.2.686 Malcolm as [id number] [facility] [address] [place] 2022-02-12 2022-02-12 [facility] [id number] Univers 19:54:21 23:59:00 Encounter [facility] [id number] ity of [place] 4.2.7.2.686 Malcolm as RAN?BLEA [id number] [facility] [address] [place] MEDICAL OFFICE [facility] 2022-02-12 2022-02-12 [facility] [id number] Univers 19:54:21 23:59:00 RANIA ity [facility] 2022-02-12 2022-02-12 Urgent [facility] [id number] Univers 19:20:00 20:06:09 Care Green, Mandi HEALTH [id number] ity of [place] 4.2.7.2.686 Malcolm as RAN?BLEA [id number] [facility] [address] [place] MEDICAL OFFICE [facility] 2022-02-12 2022-02-12 Letter Doctor KYLAH [id number] Univers 00:00:00 00:00:00 (Out) Unassigned, SILVIANO 350.1.13.10 ity of [place] [facility] 4.2.7.2.686 Malcolm as [id number] [facility] [address] [place] 2022-01-31 2022-02-01 Outpatient nullFlavo MNA [id number] Memoria 20:00:00 04:59:59 r Neurology 02 l Sultana Chavez 2022-01-31 2022-02-01 Outpatient nullFlavo MNA [id number] Memoria 20:00:00 04:59:59 r Neurology 02 l Sultana Chavez 2022-01-31 2022-01-31 [id number] 15:00:00 23:59:59 Joe Elliott Chin 2022-01-31 2022-01-31 Outpatient MHIE MHIE [id number] Memoria 15:00:00 15:00:00 02 nhan Chavez 2021-12-13 2021-12-14 Outpatient nullFlavo MNA [id number] Memoria 20:00:00 04:59:59 r Neurology 01 l Sultana Chavez 2021-12-13 2021-12-14 Outpatient nullFlavo MNA [id number] Memoria 20:00:00 04:59:59 r Neurology 01 l Sultana Chavez 2021-12-13 2021-12-13 [id number] 15:00:00 23:59:59 Joe Giuseppe 2021-12-13 2021-12-13 Outpatient MHIE MHIE [id number] Memoria 15:00:00 15:00:00 01 nhan Chavez 2021-10-11 2021-10-11 Outpatient R [facility] [id number] [facility] 16:20:00 16:20:00 [facility] 2021-07-26 2021-07-26 Ambulatory nullFlavo MNA [id number] Memoria 20:15:00 20:15:00 Pre-Reg r Neurology 00 l Sultana Chavez 2021-07-26 2021-07-26 Ambulatory nullFlavo MNA [id number] Memoria 20:15:00 20:15:00 Pre-Reg r Neurology 00 l Sultana Chavez 2021-07-26 2021-07-26 Outpatient MHIE MHIE [id number] Memoria 15:15:00 15:15:00 00 nhan Chavez 2021-07-26 2021-07-26 [facility] [id number] 15:15:00 15:15:00 Joe 00 Giuseppe Results This patient has no known results.
[2022-08-31] MEDS ORDERED: ONDANSETRON 4 MG/2 ML VIAL ONE (20:14)
[2022-08-31] MEDS ORDERED: NA CHLORIDE 0.9% 1,000 ML ONE (20:14)
[2022-08-31 20:32] LABS: Hematocrit 37.8 % (36.0-45.0); Lymphocytes % 27.2 % (15.3-44.8); MCV 89.9 fL (80-100); MPV 7.7 fL (7.6-11.3)
[2022-08-31 20:47] LABS: Albumin 3.7 g/dL (3.4-5.0); Bilirubin Total 0.6 mg/dL (0.2-1.0); Protein, Total 7.6 g/dL (6.4-8.2)
[2022-08-31 21:22] LABS: Urine Blood Negative (Negative); Urine Glucose Negative (Negative); Urine Protein Negative (Negative); Urine Specific Gravity 1.015 (1.005-1.030); Urine pH 6.5 (5.0-7.0)
--- NOTE | 2022-08-31 21:24 | ER ---
Nurse's Notes [facility] Name: Junito James Age: 86 yrs Sex: Female : 1935 Arrival Date: 08/31/2022 Time: 19:20 Bed 11 Private MD: Bebeto Delacruz C Diagnosis: Dehydration;Vomiting, unspecified;UTI/ Urinary tract infection, site not specified Presentation: 08/31 19:39 Chief complaint: Patient states: she was in this ER last night with food poisoning, kb3 went home with prescription for Zofran but felt nauseous today and did not eat or drink anything. Pt reports oe episode of vomiting today and diarrhea has resolved. Pt denies urinary symptoms. Coronavirus screen: Vaccine status: Patient reports receiving the 2nd dose of the covid vaccine. Client denies travel out of the [place] in the last 14 days. Ebola Screen: Patient negative for fever greater than or equal to 101.5 degrees Fahrenheit, and additional compatible Ebola Virus Disease symptoms Patient denies exposure to infectious person. Patient denies travel to an Ebola-affected area in the 21 days before illness onset. No symptoms or risks identified at this time. Initial Sepsis Screen: Does the patient meet any 2 criteria? No. Patient's initial sepsis screen is negative. Does the patient have a suspected source of infection? No. Patient's initial sepsis screen is negative. Risk Assessment: Do you want to hurt yourself or someone else? Patient reports no desire to harm self or others. Onset of symptoms was August 29, 2022. 19:39 Method Of Arrival: Ambulatory kb3 19:39 Acuity: SAUMYA 3 kb3 Triage Assessment: 19:41 General: Appears in no apparent distress. Behavior is calm, cooperative. Pain: Denies kb3 pain. Historical: - Allergies: 19:41 No Known Allergies; kb3 - Home Meds: 19:41 amlodipine 10 mg tab 1 tab once daily [Active]; carvedilol 3.125 mg Oral tab 1 tab 2 kb3 times per day [Active]; donepezil 10 mg Oral tab 1 tab once daily [Active]; memantine 5 mg Oral tab 1 tab 2 times per day [Active]; - PMHx: 19:41 Hypertension; Dementia; kb3 - PSHx: 19:41 None; kb3 - Immunization history:: Adult Immunizations up to date, Client reports receiving the 2nd dose of the Covid vaccine, Last tetanus immunization: unknown. - Social history:: Smoking status: Patient denies any tobacco usage or history of. - Family history:: not pertinent. - Hospitalizations: : No recent hospitalization is reported. Assessment: 20:01 General: Appears in no apparent distress. Behavior is calm, cooperative. Pain: Denies hb pain. Neuro: Level of Consciousness is awake, alert, obeys commands, Oriented to person, place, time, situation. Cardiovascular: Patient's skin is warm and dry. Respiratory: Respiratory effort is even, unlabored, Respiratory pattern is regular, symmetrical. GI: Reports intolerance of fluids, intolerance of food, nausea, vomiting. : No signs and/or symptoms were reported regarding the genitourinary system. EENT: No signs and/or symptoms were reported regarding the EENT system. Derm: Skin is pink, warm \T\ dry. Musculoskeletal: No signs and/or symptoms reported regarding the musculoskeletal system. 21:22 Reassessment: Patient appears in no apparent distress at this time. Patient and/or hb family updated on plan of care and expected duration. Pain level reassessed. Patient states feeling better. Patient states symptoms have improved. Vital Signs: 19:39 BP 164 / 66; Pulse 73; Resp 20; Temp 97.8; Pulse Ox 100% ; Weight 45.36 kg; Height 4 kb3 ft. 10 in. (147.32 cm); Pain 0/10; 21:22 BP 138 / 68; Pulse 71; Resp 15; Pulse Ox 99% ; hb 19:39 Body Mass Index 20.90 (45.36 kg, 147.32 cm) kb3 ED Course: 19:20 Patient arrived in ED. as 19:20 Darío Delacruz MD is Private Physician. as 19:21 Bebeto Delacruz MD is Private Physician. as 19:22 Girish Trent MD is Attending Physician. rn 19:41 Triage completed. kb3 19:41 Arm band placed on right wrist. kb3 19:43 Jayna Fuentes, DENNIS is Primary Nurse. hb 20:24 Inserted saline lock: 20 gauge in right forearm, using aseptic technique. Blood hb collected. 21:22 Urine Microscopic Only Sent. hb 21:23 Bebeto Delacruz MD is Referral Physician. rn Administered Medications: 20:27 Drug: NS 0.9% 1000 ml Route: IV; Rate: 1 bolus; Site: right forearm; hb 21:32 Follow up: Response: No adverse reaction; IV Status: Completed infusion; IV Intake: hb 1000ml 20:27 Drug: Zofran (Ondansetron) 4 mg Route: IVP; Site: right forearm; hb 21:10 Follow up: Response: No adverse reaction hb 21:40 Drug: Cipro (ciprofloxacin) 500 mg Route: PO; hb 21:40 Follow up: Response: Medication administered at discharge. hb Intake: 21:32 IV: 1000ml; Total: 1000ml. hb Outcome: 21:24 Discharge ordered by MD. rn 21:41 Discharged to home via wheelchair, with family. hb 21:41 Condition: stable 21:41 Discharge instructions given to patient, family, Instructed on discharge instructions, follow up and referral plans. medication usage, Demonstrated understanding of instructions, follow-up care, medications, Prescriptions given X 1. 21:41 Patient left the ED. hb Signatures: Etta Comer Roman, MD MD rn Baxter, Heather, RN RN hb Bradberry, Kelly, RN RN kb3
--- NOTE | 2022-08-31 21:24 | EDPHYS ---
Physician Documentation [facility] Name: Junito James Age: 86 yrs Sex: Female : 1935 Arrival Date: 08/31/2022 Time: 19:20 Bed 11 Private MD: Bebeto Delacruz C ED Physician Girish Trent HPI: 08/31 21:19 This 86 yrs old Female presents to ER via Ambulatory with complaints of dehydration. rn 21:19 The patient presents to the emergency department with nausea, vomiting, diarrhea. rn Onset: The symptoms/episode began/occurred yesterday. Possible causes: bad food exposure. The symptoms are aggravated by nothing. The symptoms are alleviated by nothing. Associated signs and symptoms: Pertinent positives: diarrhea, nausea, vomiting, Pertinent negatives: fever, GI bleeding. Severity of symptoms: At their worst the symptoms were mild in the emergency department the symptoms have improved. The patient has not experienced similar symptoms in the past. The patient has been recently seen at the [facility] Emergency Department. Seen here yesterday for nausea/vomiting/diarrhea, neg w/u, thought to be from bad food exposure, has been eating foods, namely non-refrigerated lunchables. Actually improved, but family called Dr. Delacruz who told her to come in for IV fluids. No abd pain yesterday or today. No fever. . Historical: - Allergies: 19:41 No Known Allergies; kb3 - Home Meds: 19:41 amlodipine 10 mg tab 1 tab once daily [Active]; carvedilol 3.125 mg Oral tab 1 tab 2 kb3 times per day [Active]; donepezil 10 mg Oral tab 1 tab once daily [Active]; memantine 5 mg Oral tab 1 tab 2 times per day [Active]; - PMHx: 19:41 Hypertension; Dementia; kb3 - PSHx: 19:41 None; kb3 - Immunization history:: Adult Immunizations up to date, Client reports receiving the 2nd dose of the Covid vaccine, Last tetanus immunization: unknown. - Social history:: Smoking status: Patient denies any tobacco usage or history of. - Family history:: not pertinent. - Hospitalizations: : No recent hospitalization is reported. ROS: 21:19 Constitutional: Negative for fever, chills, and weight loss, Eyes: Negative for injury, rn pain, redness, and discharge, Neck: Negative for injury, pain, and swelling, Cardiovascular: Negative for chest pain, palpitations, and edema, Respiratory: Negative for shortness of breath, cough, wheezing, and pleuritic chest pain, Abdomen/GI: Negative for abdominal pain, and constipation, Back: Negative for injury and pain, MS/Extremity: Negative for injury and deformity, Skin: Negative for injury, rash, and discoloration, Neuro: Negative for headache, weakness, numbness, tingling, and seizure. Exam: 21:19 Constitutional: This is a well developed, well nourished patient who is awake, alert, rn and in no acute distress. Head/Face: Normocephalic, atraumatic. ENT: mild dry MM Cardiovascular: Regular rate and rhythm. No pulse deficits. Respiratory: No increased work of breathing, no retractions or nasal flaring. Abdomen/GI: soft, non-tender Back: No spinal tenderness. No costovertebral tenderness. Full range of motion. Skin: Warm, dry MS/ Extremity: Pulses equal, no cyanosis. Neuro: Awake and alert, GCS 15 Vital Signs: 19:39 BP 164 / 66; Pulse 73; Resp 20; Temp 97.8; Pulse Ox 100% ; Weight 45.36 kg; Height 4 kb3 ft. 10 in. (147.32 cm); Pain 0/10; 21:22 BP 138 / 68; Pulse 71; Resp 15; Pulse Ox 99% ; hb 19:39 Body Mass Index 20.90 (45.36 kg, 147.32 cm) kb3 MDM: 19:22 Patient medically screened. rn 21:19 Differential diagnosis: viral gastroenteritis, gastroenteritis, food poisoning, rn dehydration, UTI. Data reviewed: vital signs, nurses notes, old medical records, lab test result(s), and as a result, I will discharge patient. Counseling: I had a detailed discussion with the patient and/or guardian regarding: the historical points, exam findings, and any diagnostic results supporting the discharge/admit diagnosis, lab results, the need for outpatient follow up, to return to the emergency department if symptoms worsen or persist or if there are any questions or concerns that arise at home. Response to treatment: the patient's symptoms have markedly improved after treatment, No further vomiting or nausea, no abd pain, patient and family requesting to be discharged, feels much better. , and as a result, I will discharge patient. Special discussion: I discussed with the patient/guardian in detail that at this point there is no indication for admission to the hospital. It is understood, however, that if the symptoms persist or worsen the patient needs to return immediately for re-evaluation. 08/31 19:39 Order name: CBC with Diff; Complete Time: 21: rn 08/31 19:39 Order name: CMP; Complete Time: 21: rn 08/31 19:39 Order name: Lipase; Complete Time: 21: rn 08/31 19:39 Order name: Urine Microscopic Only rn 08/31 21:22 Order name: Urine Dipstick-Ancillary EDDE 08/31 19:39 Order name: IV Saline Lock; Complete Time: 20:27 rn 08/31 19:39 Order name: Labs collected and sent; Complete Time: 20:27 rn 08/31 19:39 Order name: Urine Dipstick-Ancillary (obtain specimen); Complete Time: 21:22 rn Administered Medications: 20:27 Drug: NS 0.9% 1000 ml Route: IV; Rate: 1 bolus; Site: right forearm; hb 21:32 Follow up: Response: No adverse reaction; IV Status: Completed infusion; IV Intake: hb 1000ml 20:27 Drug: Zofran (Ondansetron) 4 mg Route: IVP; Site: right forearm; hb 21:10 Follow up: Response: No adverse reaction hb 21:40 Drug: Cipro (ciprofloxacin) 500 mg Route: PO; hb 21:40 Follow up: Response: Medication administered at discharge. hb Disposition Summary: 08/31/22 21:24 Discharge Ordered Location: Home rn Problem: new rn Symptoms: have improved rn Condition: Stable rn Diagnosis - Dehydration rn - Vomiting, unspecified rn - UTI/ Urinary tract infection, site not specified rn Followup: rn - With: Bebeto Delacruz MD - When: As needed - Reason: Recheck today's complaints, Re-evaluation by your physician Discharge Instructions: - Discharge Summary Sheet rn - Dehydration, Adult rn - Nausea and Vomiting, Adult rn - Urinary Tract Infection, Adult rn Forms: - Medication Reconciliation Form rn - Thank You Letter rn - Antibiotic licensed journeyman electrician - Prescription Opioid Use rn Prescriptions: - Cipro 500 mg Oral Tablet - take 1 tablet by ORAL route every 12 hours for 7 days; 14 tablet; Refills: 0, rn Product Selection Permitted Signatures: Dispatcher [employer] Girish Denise MD MD rn Baxter, Heather RN RN Josie Jarquin RN RN kb3
[2022-08-31] MEDS ORDERED: CIPROFLOXACIN HCL 500 MG TAB ONE (21:33)
[2022-08-31 21:36] LABS: Urine Mucus Slight /HPF (None Seen); Urine RBC <5 /HPF (None Seen); Urine WBC Clump Rare /HPF (None Seen)
[2022-08-31 21:45] VITALS: TEMP 97.8
[2022-08-31 21:46] VITALS: BP 138/68; O2SAT 99
== END 2022-08-31 21:41 | disposition home or self-care (01) ==
LOC: ER 19:17
DX: E86.0 Dehydration (principal); N39.0 Urinary tract infection, site not specified; I10 Essential (primary) hypertension; F03.90 Unspecified dementia, unspecified severity, without behavioral disturbance, psychotic disturbance, mood disturbance, and anxiety
CPT/HCPCS: 96361; 85025; 36415; 83690; 80053; 96374; 99284; J7030; J2405; 81003; 81015

== ENCOUNTER 2023-10-13 18:41 | Observation (INO) | payer OTHER, BC ==
[2023-10-13] MEDS ORDERED: ONDANSETRON 4 MG/2 ML VIAL ONE (19:24)
[2023-10-13] MEDS ORDERED: NA CHLORIDE 0.9% 1,000 ML ONE ×2 (19:25→22:14)
[2023-10-13 19:36] LABS: Hematocrit 37.3 % (36.0-45.0); Lymphocytes % 35.1 % (15.3-44.8); MCV 89.7 fL (80-100); MPV 8.1 fL (7.6-11.3); Platelets 206 thou/uL (152-406); RBC Red Blood Cell Count 4.16 M/uL (3.86-4.86)
--- NOTE | 2023-10-13 19:57 | EDPHYS ---
Physician Documentation [facility] Name: Junito James Age: 88 yrs Sex: Female : 1935 Arrival Date: 10/13/2023 Time: 18:41 Bed 18 Private MD: ED Physician Fermin Ronquillo HPI: 10/13 18:55 This 88 yrs old Female presents to ER via Ambulatory with complaints of ec2 weakness, concern for dehydration. 18:55 Patient arrives today for evaluation of poor p.o. intake and concern for dehydration ec2 with generalized weakness. Patient recently diagnosed with COVID approximately 5 days ago has been having a poor appetite and has not been drinking fluids. No vomiting or diarrhea. Reports frequent cough, no fevers or chills, no urinary complaints.. Historical: - Home Meds: 18:58 amlodipine 10 mg tab 1 tab once daily [Active]; carvedilol 3.125 mg Oral tab 1 tab 2 cp4 times per day [Active]; donepezil 10 mg Oral tab 1 tab once daily [Active]; memantine 5 mg Oral tab 1 tab 2 times per day [Active]; - PMHx: 18:58 Dementia; Hypertension; cp4 - Immunization history:: Adult Immunizations up to date. - Social history:: Smoking status: Patient denies any tobacco usage or history of. ROS: 18:55 Constitutional: as per hpi ec2 Exam: 18:55 Constitutional: GEN: NAD Head: atraumatic Eyes: EOMI Ears: External ears are ec2 normal. CV: regular rate LUNGS: no respiratory distress ABD: non-distended, soft, nontender, no guarding, not rigid SKIN: no evidence of rashes MSK: no evidence of trauma NEURO: moves all extremities equally Vital Signs: 18:55 BP 168 / 72; Pulse 74; Resp 16; Temp 98.2; Pulse Ox 100% ; cp4 19:30 BP 162 / 76; Pulse 61; Resp 17 S; Pulse Ox 98% on R/A; ha1 20:30 BP 158 / 66; Pulse 69; Resp 18 S; Pulse Ox 97% on R/A; ha1 MDM: 18:49 Patient medically screened. ec2 18:55 ED course: Patient arrives today for weakness and poor p.o. intake. Examination ec2 remarkable for well-appearing nontoxic dividual is otherwise in no acute distress with a reassuring examination. Will obtain basic lab work, chest x-ray and further assess the patient. Currently considering dehydration, electrolyte disturbances, anemia.. 19:39 ED course: EKG independently reviewed and interpreted by me, shows normal sinus rhythm, ec2 rate of 65, no acute ST segment elevations, nonconcerning intervals.. 19:55 Data reviewed: vital signs. ED course: Will admit to Dr. Delacruz for continued IV fluids.. ec2 10/13 18:54 Order name: CBC with Diff; Complete Time: 19:53 ec2 10/13 18:54 Order name: CMP; Complete Time: 21:29 ec2 10/13 18:56 Order name: Troponin High Sensitivity; Complete Time: 19:53 ec2 10/13 19:58 Order name: COVID-19/FLU A+B/RSV; Complete Time: 21:29 ec2 10/13 20:02 Order name: CBC with Automated Diff EDMS 10/13 20:02 Order name: Comprehensive Metabolic Panel EDMS 10/13 20:02 Order name: Urinalysis w/ reflexes EDMS 10/13 18:54 Order name: CXR XRAY ec2 10/13 20:13 Order name: RAD; Complete Time: 21:29 EDMS 10/13 18:56 Order name: EKG; Complete Time: 18:56 ec2 10/13 18:54 Order name: IV Saline Lock; Complete Time: 19:27 ec2 10/13 18:54 Order name: Labs collected and sent; Complete Time: 19:27 ec2 10/13 18:56 Order name: EKG - Nurse/Tech; Complete Time: 19:41 ec2 Administered Medications: 19:27 Drug: NS 0.9% IV 1000 ml IV at 1 bolus Per protocol; 1000 mL bolus Route: IV; Rate: 1 ha1 bolus; Site: right wrist; 19:27 Drug: Ondansetron IVP 4 mg IVP once; over 2 minutes Route: IVP; Site: right wrist; ha1 Disposition Summary: 10/13/23 19:56 Hospitalization Ordered Notes: Hospitalization Status: Inpatient Admission ec2 Provider: Bebeto Delacruz Condition: Stable ec2 Problem: new ec2 Symptoms: are unchanged ec2 Bed/Room Type: Standard ec2 Location: [facility] [[email or web address] ER HOLD(10/13/23 21:55) cg Room Assignment: ERHOLD-(10/13/23 21:55) cg Diagnosis - Dehydration ec2 Forms: - Medication Reconciliation Form ec2 - SBAR form ec2 - Leadership Thank You Letter ec2 Signatures: Dispatcher [employer] Opal Gamble RN RN cg Jazmine Cornelius RN RN ha1 Cruz Medeiros MD MD 4 Fermin Ronquillo MD MD ec2 Charlene Cuello 4 Corrections: (The following items were deleted from the chart) 19:56 Telemetry/MedSurg (Inpatient) ec2 cg :55 19:56 ec2 cg
--- NOTE | 2023-10-13 19:57 | ER ---
Nurse's Notes [facility] Name: Junito James Age: 88 yrs Sex: Female : 1935 Arrival Date: 10/13/2023 Time: 18:41 Bed 18 Private MD: Diagnosis: Dehydration Presentation: 10/13 18:55 Chief complaint: Patient's son or daughter states: patient has COVID and was sent here cp4 because she is not eating or drinking. Coronavirus screen: Client presents with at least one sign or symptom that may indicate coronavirus-19. Standard/surgical mask placed on the client. Provider contacted for isolation considerations. Ebola Screen: Patient negative for fever greater than or equal to 101.5 degrees Fahrenheit, and additional compatible Ebola Virus Disease symptoms Patient denies exposure to infectious person. Patient denies travel to an Ebola-affected area in the 21 days before illness onset. No symptoms or risks identified at this time. Initial Sepsis Screen: Does the patient meet any 2 criteria? No. Patient's initial sepsis screen is negative. Does the patient have a suspected source of infection? No. Patient's initial sepsis screen is negative. Risk Assessment: Do you want to hurt yourself or someone else? Patient reports no desire to harm self or others. Onset of symptoms was October 08, 2023. 18:55 Method Of Arrival: Wheelchair cp4 18:55 Acuity: SAUMYA 3 cp4 Triage Assessment: 18:58 General: Appears in no apparent distress. Behavior is calm, cooperative, appropriate cp4 for age. Pain: Denies pain. Historical: - Home Meds: 18:58 amlodipine 10 mg tab 1 tab once daily [Active]; carvedilol 3.125 mg Oral tab 1 tab 2 cp4 times per day [Active]; donepezil 10 mg Oral tab 1 tab once daily [Active]; memantine 5 mg Oral tab 1 tab 2 times per day [Active]; - PMHx: 18:58 Dementia; Hypertension; cp4 - Immunization history:: Adult Immunizations up to date. - Social history:: Smoking status: Patient denies any tobacco usage or history of. Screenin:47 [facility] ED Fall Risk Assessment (Adult) History of falling in the last 3 months, ha1 including since admission No falls in past 3 months (0 pts) Confusion or Disorientation No (0 pts) Intoxicated or Sedated No (0 pts) Impaired Gait No (0 pts) Mobility Assist Device Used No (0 pt) Altered Elimination No (0 pt) Score/Fall Risk Level 0 - 2 = Low Risk Oriented to surroundings, Maintained a safe environment, Hourly rounding (assess needs \T\ fall precautionary measures) done. Abuse screen: Denies threats or abuse. Denies injuries from another. Nutritional screening: No deficits noted. Tuberculosis screening: No symptoms or risk factors identified. Assessment: 19:30 General: Appears comfortable, Behavior is calm, cooperative. Pain: Denies pain. Neuro: ha1 Level of Consciousness is awake, alert, obeys commands, Oriented to person, place, time, situation. Neuro: Reports weakness generalized. Cardiovascular: Capillary refill < 3 seconds Patient's skin is warm and dry. Respiratory: Airway is patent Respiratory effort is even, unlabored, Respiratory pattern is regular, symmetrical. GI: No signs and/or symptoms were reported involving the gastrointestinal system. Abdomen is flat, non-distended. Derm: No signs and/or symptoms reported regarding the dermatologic system. Skin is pink, warm \T\ dry. Musculoskeletal: Circulation, motion, and sensation intact. Vital Signs: 18:55 BP 168 / 72; Pulse 74; Resp 16; Temp 98.2; Pulse Ox 100% ; cp4 19:30 BP 162 / 76; Pulse 61; Resp 17 S; Pulse Ox 98% on R/A; ha1 20:30 BP 158 / 66; Pulse 69; Resp 18 S; Pulse Ox 97% on R/A; ha1 ED Course: 18:45 Patient arrived in ED. mg5 18:46 Fermin Ronquillo MD is Attending Physician. ec2 18:58 Triage completed. cp4 18:58 Arm band placed on right wrist. Patient placed in waiting room. cp4 19:00 Patient has correct armband on for positive identification. Placed in gown. Bed in low ha1 position. Call light in reach. Side rails up X 1. Adult w/ patient. 19:25 Inserted saline lock: 22 gauge in right wrist, using aseptic technique. Blood collected.ha1 19:27 Jazmine Cornelius RN is Primary Nurse. ha1 19:27 CBC with Diff Sent. ha1 19:27 CMP Sent. ha1 19:27 Troponin High Sensitivity Sent. ha1 19:56 Bebeto Delacruz MD is Hospitalizing Provider. ec2 20:47 Provided Education on: need for admit . ha1 Administered Medications: 19:27 Drug: NS 0.9% IV 1000 ml IV at 1 bolus Per protocol; 1000 mL bolus Route: IV; Rate: 1 ha1 bolus; Site: right wrist; 19:27 Drug: Ondansetron IVP 4 mg IVP once; over 2 minutes Route: IVP; Site: right wrist; ha1 Medication: 20:47 VIS not applicable for this client. ha1 Outcome: 19:56 Decision to Hospitalize by Provider. ec2 10/14 14:59 Patient left the ED. ph Signatures: Yenifer Valerio RN RN ph Jazmine Cornelius RN RN ha1 Winsome Dye mg5 Fermin Ronquillo MD MD ec2 Charlene Cuello cp4
[2023-10-13] MEDS ORDERED: ACETAMINOPHEN 500 MG TAB PO PRN (19:58)
[2023-10-13] MEDS ORDERED: ALBUTEROL 2.5 MG/3 ML NEB SOL NEB PRN (19:58)
[2023-10-13] MEDS ORDERED: ONDANSETRON 4 MG/2 ML VIAL IV PRN (19:58)
[2023-10-13] MEDS ORDERED: NA CHLORIDE 0.9% 1,000 ML IV SCH (20:00)
[2023-10-13 20:09] LABS: Albumin 3.3 g/dL (3.4-5.0); Bilirubin Total 0.4 mg/dL (0.2-1.0); Potassium 3.4 mEq/L (3.5-5.1); Protein, Total 7.1 g/dL (6.4-8.2)
--- NOTE | 2023-10-13 20:11 | RAD REPORT ---
EXAM DESCRIPTION: RAD - Chest Single View - 10/13/2023 8:03 pm CLINICAL HISTORY: covid Chest pain. COMPARISON: Chest Pa And Lat (2 Views) dated 08/27/2023; Chest Single View dated 02/24/2019; Chest Pa A nd Lat (2 Views) dated 07/08/2017; CHEST PA AND LAT 2 VIEW dated 08/23/2012 FINDINGS: Portable technique limits examination quality. The lungs are emphysematous but grossly clear. The heart is normal in size. No displaced fractures. IMPRESSION: No acute intrathoracic process suspected.
[2023-10-13 21:12] LABS: SARS-COV-2 RT PCR POSITIVE (NEGATIVE)
[2023-10-13 21:40] LABS: Absolute Lymphocytes (CBC) 2.3 K/uL (0.7-4.9); Hematocrit 37.9 % (36.0-45.0); Lymphocytes % 35.5 % (15.3-44.8); MCV 90.8 fL (80-100); MPV 7.9 fL (7.6-11.3); Platelets 200 thou/uL (152-406); RBC Red Blood Cell Count 4.17 M/uL (3.86-4.86)
[2023-10-13 21:55] LABS: Albumin 3.2 g/dL (3.4-5.0); Bilirubin Total 0.4 mg/dL (0.2-1.0); Potassium 3.6 mEq/L (3.5-5.1); Protein, Total 6.7 g/dL (6.4-8.2)
[2023-10-13 23:45] VITALS: BMI 20.5
[2023-10-14 10:33] VITALS: TEMP 97.8
--- NOTE | 2023-10-14 10:44 | PN ---
This is a patient who was admitted with COVID positive and symptoms of dehydration. The patient was admitted to the ER as an inpatient. Dr. Delacruz evaluated the patient this morning. After hydration, t he patient felt much better. There was no need for the patient to stay in the hospital. So he disch arged the patient. Therefore I agreed with code 44. The patient is appropriate for reversal from in patient to observation. /MODL Voice ID: [id number] Report ID: [id number]
[2023-10-14 14:43] VITALS: BP 147/86
[2023-10-14 16:15] VITALS: O2SAT 97
--- NOTE | 2023-10-14 17:24 | EKG ---
Test Date: 2023-10-13 Test Time: 19:36:19 Quotation Clerk: IRENE MEASUREMENT RESULTS: Intervals: Rate: 65 ID: [id number] QRSD: 72 QT: 422 QTc: 438 [place]: P: 60 ID: [id number] QRS: 41 T: 80 INTERPRETIVE STATEMENTS: Normal sinus rhythm Normal ECG Compared to ECG 05/13/2019 15:35:16 No significant changes Electronically Signed On 10-14-23 17:23:05 BAR STEWARD by Cory Tyler
--- NOTE | 2023-10-15 07:03 | SS ---
Date of Discharge: 10/14/2023 Chief Complaint: Nausea, vomiting. History Of Present Illness: This is an 88-year-old female patient who lives at home with her son and [id number]. [id number] contacted office yesterday and informed us that all of the family members are having COVID. The patient was having lot of nausea, vomiting, and was not able to keep a ny food or liquids down in her stomach, so she was advised to be brought to emergency room, which she did yesterday. After she was evaluated, she was admitted to the hospital. She was started on IV fl uid hydration and overnight her condition has improved. This morning, when I saw her, she was sleepi ng, easily arousable, not in any distress. Denied any complaints. No abdominal pain. No nausea, vo miting. No chest pain. No shortness of breath. Allergies: TO DEMEROL, CAUSING NAUSEA AND VOMITING. Medications: Amlodipine 10 mg daily, Caltrate Plus D 1 tablet daily, carvedilol 3.125 mg 2 times a d ay, vitamin D3 1000 units daily, donepezil 10 mg daily, and memantine 5 mg 2 times a day. Review of Systems: GI: As mentioned above. All other systems reviewed and negative. Past Medical History: Significant for allergic rhinitis, COPD, bronchiectasis, hypertension, hyperli pidemia, diverticulosis, osteoarthritis at multiple sites, leukocytopenia, and senile dementia. Past Surgical History: Significant for tonsillectomy. Family History: Father had hypertension and asthma. Mother had hypertension and stroke. Social History: Negative for smoking and alcohol use. Physical Examination: Vital Signs: When she arrived to emergency room, blood pressure was 168/72, pulse 74, respiratory ra te 16, temperature 98.2, oxygen saturation 100%. General: Awake, alert, oriented, not in distress. HEENT: Head atraumatic, normocephalic. Conjunctivae nonerythematous. Sclerae white. Mouth, no thr ush or edema noted. Ears/Nose, no mass, lesion, discharge noted. Neck: Supple. No JVD, lymph nodes, bruit, thyromegaly noted. Lungs: Bilateral good equal air entry. Clear to auscultation. No rhonchi. No rales. Heart: Normal heart sounds, no murmur or gallop. Abdomen: Soft, bowel sounds normal. No guarding, rigidity, tenderness, mass, hepatosplenomegaly, dis tention, or bruit noted. Extremities: No leg edema. No calf tenderness. Skin: No rash, ulcer, cellulitis. Lymphatics: No lymph node enlargement in neck, supraclavicular, infraclavicular region. Neuro: No focal neurological deficit. Chest: Unremarkable. External Genitalia: Deferred. Rectal: Deferred. Laboratory Data: Initial WBC 5.6, hemoglobin 13.2, platelets 206. Repeat CBC shows white count 6.4, hemoglobin 13, platelets 200. Initial chemistry: Sodium 139, potassium 3.4, chloride 105, bicarb 2 8, BUN 13, creatinine 1.02, glucose 96. Liver function test unremarkable. Troponin 6.5. Repeat perla hafsa: Sodium 142, potassium 3.6, chloride 109, bicarb 28, BUN 12, creatinine 0.96, glucose 102. L iver function test unremarkable. Chest x-ray did not show any acute cardiopulmonary changes. Her CO VID-19 test was positive. Hospital Course: After the patient was evaluated in the emergency room, she was admitted to the hosp ital. Overnight, she was kept in the hospital. IV fluid was given, and she has felt very well. She has not had any problem with nausea, vomiting. Vital signs are stable. This morning, after she alejandro erated breakfast, decision was made to discharge her to go home. The patient was prescribed molnupir avir on 10/12/2023 by another provider. This medication was continued while she was in the hospital and the patient to continue this medication upon discharge also. Discharge Medications And Instructions: 1.Continue all prior home medications, including molnupiravir. 2.Follow up at my office per scheduled appointment. Final Diagnoses: 1.COVID-19 infection. 2.Senile dementia. 3.Nausea with vomiting. 4.Hypertension. 5.Hyperlipidemia. 6.Diverticulosis. 7.Osteoarthritis, multiple sites. 8.Chronic obstructive pulmonary disease. 9.Bronchiectasis. DANN/MODL Voice ID: [id number] Report ID: [id number]
== END 2023-10-14 15:00 | disposition home or self-care (01) ==
LOC: ER 18:41 → ERHOLD 19:58 → INTOOBSV 19:58
PROVIDERS: ADMIT Internal Medicine; ATTEND Internal Medicine
DX: U07.1 COVID-19 (principal); I10 Essential (primary) hypertension; E78.5 Hyperlipidemia, unspecified; M19.90 Unspecified osteoarthritis, unspecified site; F03.90 Unspecified dementia, unspecified severity, without behavioral disturbance, psychotic disturbance, mood disturbance, and anxiety; J44.9 Chronic obstructive pulmonary disease, unspecified; J30.9 Allergic rhinitis, unspecified; K57.90 Diverticulosis of intestine, part unspecified, without perforation or abscess without bleeding; J47.9 Bronchiectasis, uncomplicated
CPT/HCPCS: 93005; 85025 ×2; 36415; 84484; 80053 ×2; 0241U; 71045; J2405; J7030 ×2; G0378

== ENCOUNTER 2024-08-02 19:50 | Observation (INO) | payer BC, OTHER ==
--- NOTE | 2024-08-02 20:54 | RAD REPORT ---
EXAM: CT brain without contrast HISTORY: CONFUSED COMPARISON: 01/23/2022 MRI study TECHNIQUE: Multiple contiguous axial images were obtained and a CT of the brain without contrast. Sag ittal and coronal reformats were performed. One or more of the following dose reduction techniques were used: Automated exposure control, adjust ment of the mA and/or kV according to patient size, and/or iterative reconstruction. FINDINGS: No evidence of hydrocephalus, intracranial hemorrhage, or extra-axial fluid collection. Moderate brain atrophy with moderate periventricular and deep white matter chronic microvascular isc hemic changes present. No evidence of midline shift or areas of brain edema. The calvarium is intact. The visualized paranasal sinuses and mastoid air cells are essentially clear . IMPRESSION: No evidence of acute intracranial abnormality.
--- NOTE | 2024-08-02 21:14 | RAD REPORT ---
EXAMINATION: ONE VIEW CHEST XR CLINICAL INDICATION: CHEST PAIN TECHNIQUE: Frontal chest projection is submitted. Examination is limited by patient positioning and t echnique. COMPARISON: 10/13/2023 FINDINGS: The lungs are mildly emphysematous but clear. The heart is upper limit of normal in size. No displace d fractures identified. IMPRESSION: No acute intrathoracic abnormalities.
[2024-08-02 22:00] LABS: Absolute Eosinophils 0.2 K/uL (0-0.5); Absolute Lymphocytes (CBC) 2.4 K/uL (0.7-4.9); Absolute Monocytes 0.5 K/uL (0.1-1.3); Absolute Neutrophil 2.8 K/uL (1.8-8.0); Basophils % 0.8 % (0-1.3); Eosinophils % 4.1 % (0-4.4); Hematocrit 37.6 % (36.0-45.0); Hemoglobin 12.5 g/dL (12.0-15.0); Lymphocytes % 40.5 % (15.3-44.8); MCH 31.3 pg (27.0-35.0); MCHC 33.2 g/dL (32.0-36.0); MCV 94.4 fL (80-100); Monocytes % 7.6 % (3.3-12.3); Platelets 251 thou/uL (152-406); RBC Red Blood Cell Count 3.99 M/uL (3.86-4.86); Red Cell Distribution Width 13.9 % (12.1-15.2)
[2024-08-02 22:03] LABS: PT Prothrombin Time 11.1 SECONDS (9.4-12.5); Protime INR 0.99
[2024-08-02 22:19] LABS: ALT/SGPT 24 U/L (13-56); AST/SGOT 22 U/L (15-37); Albumin 3.7 g/dL (3.4-5.0); Albumin/Globulin Ratio 0.9 (1.1-1.8); Alkaline Phosphatase 95 U/L (45-117); Anion Gap 8.5 mEq/L (5.0-15.0); BUN Blood Urea Nitrogen 11 mg/dL (7-18); Bicarbonate 28 mEq/L (21-32); Bilirubin Total 0.4 mg/dL (0.2-1.0); Globulin 4.2 g/dL (2.3-3.5); Glomerular Filtration Rate 48 ml/min (=/>90); Glucose Level 110 mg/dL (74-106); Magnesium 1.8 mg/dL (1.6-2.4); NT PRO-BNP 95 pg/mL (<450); Potassium 3.5 mEq/L (3.5-5.1); Protein, Total 7.9 g/dL (6.4-8.2); Sodium Level 138 mEq/L (136-145); Troponin High Sensitivity 5.6 pg/mL (<58.9)
[2024-08-02 22:23] LABS: C-Reactive Protein 4.06 mg/L (<3.00)
[2024-08-02 22:39] LABS: Bilirubin Direct < 0.2 mg/dL (0-0.2); Bilirubin Indirect, Calculated 0.2 mg/dL (0.2-0.8)
[2024-08-02 22:40] LABS: Thyroid Stimulating Hormone 6.41 uIU/mL (0.358-3.740)
[2024-08-02] MEDS ORDERED: HYDRALAZINE HCL 25 MG TABLET ONE (22:56)
--- NOTE | 2024-08-02 23:29 | ER ---
Nurse's Notes [facility] Name: Junito James Age: 88 yrs Sex: Female : 1935 Arrival Date: 08/02/2024 Time: 19:50 Bed 17 Private MD: Diagnosis: Muscle weakness (generalized);Dizziness, Hypertensive Crisis, Balance disorder, Acute Dyspnea Presentation: 08/02 20:07 Chief complaint: Patient states: FEELING WEAK OVER THE LAST FEW DAYS. PT REPORTS cm10 PALPITATIONS AND SHORTNESS OF BREATH. PT DENIES CHEST PAIN. PT'S DAUGHTER REPORTS THAT PATIENT'S BLOOD PRESSURE WAS ELEVATED. Coronavirus screen: Client denies travel out of the [place] in the last 14 days. Ebola Screen: Patient denies travel to an Ebola-affected area in the 21 days before illness onset. No symptoms or risks identified at this time. Initial Sepsis Screen: Does the patient meet any 2 criteria? No. Patient's initial sepsis screen is negative. Does the patient have a suspected source of infection? No. Patient's initial sepsis screen is negative. Risk Assessment: Do you want to hurt yourself or someone else? Patient reports no desire to harm self or others. Onset of symptoms was August 01, 2024. 20:07 Method Of Arrival: Wheelchair cm10 20:07 Acuity: SAUMYA 2 cm10 Triage Assessment: 20:10 General: Appears in no apparent distress. uncomfortable, Behavior is calm, cooperative. cm10 Neuro: No deficits noted. Level of Consciousness is awake, alert, obeys commands, Oriented to person, place, time, situation, Appropriate for age. Respiratory: No deficits noted. Airway is patent Respiratory effort is even, unlabored, Respiratory pattern is regular, symmetrical. Historical: - Allergies: 20:09 No Known Allergies; cm10 - Home Meds: 20:09 amlodipine 10 mg tab 1 tab once daily [Active]; carvedilol 3.125 mg Oral tab 1 tab 2 cm10 times per day [Active]; donepezil 10 mg Oral tab 1 tab once daily [Active]; memantine 5 mg Oral tab 1 tab 2 times per day [Active]; mirtazapine 15 mg oral tablet every day at bedtime [Active]; - PMHx: 20:09 Dementia; Hypertension; cm10 - Immunization history:: Adult Immunizations up to date. - Infectious Disease History:: Denies. - Social history:: Smoking status: Patient denies any tobacco usage or history of. - Family history:: not pertinent. Screenin:04 [facility] ED Fall Risk Assessment (Adult) History of falling in the last 3 months, al5 including since admission No falls in past 3 months (0 pts) Confusion or Disorientation No (0 pts) Intoxicated or Sedated No (0 pts) Impaired Gait Yes (1 pt) Mobility Assist Device Used Yes (1 pt) Altered Elimination No (0 pt) Score/Fall Risk Level 0 - 2 = Low Risk Oriented to surroundings, Maintained a safe environment, Provided non-skid footwear, Hourly rounding (assess needs \T\ fall precautionary measures) done. Abuse screen: Denies threats or abuse. Denies injuries from another. Nutritional screening: No deficits noted. Tuberculosis screening: No symptoms or risk factors identified. Assessment: 23:04 General: Appears in no apparent distress. comfortable, Behavior is calm, cooperative. al5 Pain: Denies pain. Pain does not radiate. Neuro: Level of Consciousness is awake, alert, obeys commands, Oriented to person, place, time, situation. Cardiovascular: Capillary refill < 3 seconds Patient's skin is warm and dry. Rhythm is sinus rhythm. Respiratory: Airway is patent Respiratory effort is even, unlabored, Respiratory pattern is regular, symmetrical. GI: Abdomen is non-distended. : No signs and/or symptoms were reported regarding the genitourinary system. EENT: No signs and/or symptoms were reported regarding the EENT system. Derm: Skin is intact, is healthy with good turgor, Skin is pink, warm \T\ dry. normal. Musculoskeletal: No signs and/or symptoms reported regarding the musculoskeletal system. 08/03 00:33 Reassessment: Patient appears in no apparent distress at this time. No changes from al5 previously documented assessment. Patient and/or family updated on plan of care and expected duration. Pain level reassessed. Patient is alert, oriented x 3, equal unlabored respirations, skin warm/dry/pink. 00:33 Reassessment: awaiting admission orders from doctor. cp4 02:24 Reassessment: Patient appears in no apparent distress at this time. No changes from cp4 previously documented assessment. Patient and/or family updated on plan of care and expected duration. Pain level reassessed. Patient is alert, oriented x 3, equal unlabored respirations, skin warm/dry/pink. 03:47 Reassessment: Patient appears in no apparent distress at this time. No changes from cp4 previously documented assessment. Patient and/or family updated on plan of care and expected duration. Pain level reassessed. Patient is alert, oriented x 3, equal unlabored respirations, skin warm/dry/pink. 04:50 Reassessment: Patient appears in no apparent distress at this time. No changes from cp4 previously documented assessment. Patient and/or family updated on plan of care and expected duration. Pain level reassessed. Patient is alert, oriented x 3, equal unlabored respirations, skin warm/dry/pink. 05:58 Reassessment: Patient appears in no apparent distress at this time. No changes from al5 previously documented assessment. Patient and/or family updated on plan of care and expected duration. Pain level reassessed. Patient is alert, oriented x 3, equal unlabored respirations, skin warm/dry/pink. 07:46 Reassessment: LEFT A MESSAGE WITH DR. [place] ANSWERING SERVICE FOR ADMISSION ORDERS FOR db PATIENT. Vital Signs: 08/02 20:07 BP 170 / 74; Pulse 78; Resp 18; Temp 97(TE); Pulse Ox 99% on R/A; Weight 50.8 kg (R); cm10 Height 4 ft. 11 in. (R); Pain 0/10; 22:21 BP 178 / 74; Pulse 72; Resp 18; Pulse Ox 98% on R/A; al5 22:30 BP 174 / 69; Pulse 67; Resp 16; Pulse Ox 98% on R/A; al5 22:45 BP 157 / 66; Pulse 65; Resp 18; Pulse Ox 98% on R/A; al5 23:00 BP 170 / 75; Pulse 69; Resp 17; Pulse Ox 97% on R/A; al5 23:15 BP 156 / 68; Pulse 72; Resp 19; Pulse Ox 96% on R/A; al5 23:30 BP 147 / 62; Pulse 73; Resp 17; Pulse Ox 97% on R/A; al5 23:45 BP 139 / 62; Pulse 75; Resp 18; Pulse Ox 97% on R/A; al5 08/03 00:00 BP 133 / 62; Pulse 76; Resp 18; Pulse Ox 97% on R/A; al5 00:15 BP 137 / 61; Pulse 75; Resp 19; Pulse Ox 96% on R/A; al5 01:30 BP 140 / 65; Pulse 73; Resp 14; Pulse Ox 96% on R/A; al5 02:00 BP 146 / 65; Pulse 73; Resp 17; Pulse Ox 96% on R/A; al5 02:30 BP 161 / 66; Pulse 75; Resp 19; Pulse Ox 95% on R/A; al5 03:00 BP 155 / 67; Pulse 73; Resp 16; Pulse Ox 95% on R/A; al5 03:30 BP 146 / 68; Pulse 76; Resp 15; Pulse Ox 96% on R/A; al5 04:00 BP 140 / 64; Pulse 73; Resp 19; Pulse Ox 96% on R/A; al5 05:00 BP 162 / 76; Pulse 77; Resp 17; Pulse Ox 96% ; al5 06:00 BP 168 / 68; Pulse 76; Resp 17; Pulse Ox 95% on R/A; al5 08/02 20:07 Body Mass Index 22.62 (50.80 kg, 149.86 cm) cm10 08/02 20:07 Pain Scale: Adult cm10 Beverly Coma Score: 05:23 Eye Response: spontaneous(4). Motor Response: obeys commands(6). Verbal Response: sp4 oriented(5). Total: 15. ED Course: 08/02 19:52 Patient arrived in ED. jj6 20:06 EKG completed in triage. Results shown to MD. cm10 20:06 EKG done, by ED staff, reviewed by Cruz Medeiros MD. cm10 20:08 Cruz Medeiros MD is Attending Physician. sp4 20:09 Triage completed. cm10 20:10 Arm band placed on right wrist. Patient placed in waiting room. cm10 20:52 CT Head Brain wo Cont In Process Unspecified. EDMS 21:08 XRAY Chest (1 view) In Process Unspecified. EDMS 21:44 CRP Sent. cm10 21:44 T4 Free Sent. cm10 21:44 TSH Sent. cm10 21:44 Basic Metabolic Panel Sent. cm10 21:44 CBC with Diff Sent. cm10 21:44 LFT's Sent. cm10 21:44 Magnesium Sent. cm10 21:44 NT PRO-BNP Sent. cm10 21:44 PT-INR Sent. cm10 21:44 Troponin HS Sent. cm10 21:44 Initial lab(s) drawn, by me, sent to lab. Inserted saline lock: 20 gauge in left cm10 forearm, using aseptic technique. Blood collected. Flushed with 10 mL NS. 22:51 Dorys David, RN is Primary Nurse. al5 23:04 Patient has correct armband on for positive identification. Bed in low position. Call al5 light in reach. Side rails up X2. Provided Education on: plan of care. Client placed on continuous cardiac and pulse oximetry monitoring. NIBP monitoring applied. shade classifier on. 23:28 Darío Cleveland MD is Hospitalizing Provider. sp4 08/03 00:35 No provider procedures requiring assistance completed. Patient admitted, IV remains in al5 place. Patient maintains SpO2 saturation greater than 95% on room air. Administered Medications: 08/02 23:04 Drug: HydrALAZINE PO 25 mg PO once Route: PO; al5 08/03 00:28 Follow up: Response: No adverse reaction; Blood pressure is lowered al5 08/02 23:27 CANCELLED (Physician Discretion): [id number] mg PO once sp4 Medication: 23:04 VIS not applicable for this client. al5 Outcome: 23:29 Decision to Hospitalize by Provider. sp4 08/03 00:36 Admitted to ER Hold. Please see [facility] for further documentation. al5 Condition: stable Instructed on the need for admit, 18:34 Patient left the ED. ap3 Signatures: Dispatcher [employer] EDLA Dorys Walker, RN RN ap3 Angélica Dietrichj6 Lizy Zhang RN RN Cruz Zhao MD MD sp4 Yadira Comer RN RN Charlene Quinonez Dorys Bright, RN DENNIS al5
--- NOTE | 2024-08-02 23:29 | EDPHYS ---
Physician Documentation [facility] Name: Junito James Age: 88 yrs Sex: Female : 1935 Arrival Date: 08/02/2024 Time: 19:50 Bed 17 Private MD: ADOLFO Physician Cruz Medeiros HPI: 08/02 20:08 This 88 yrs old Female presents to ER via Unassigned with complaints of Chest sp4 Pain, Shortness Of Breath, High Blood Pressure, BP WAS 200/80 AT HOME. 08/03 05:23 88-year-old female with past medical history of dementia and hypertension who presents sp4 for complaint of acute generalized weakness, acute worsening balance disorder, and also highly elevated blood pressure reported 200/90. Patient has dementia and is not able to provide full history. Primary MD is Jayme. Historical: - Allergies: 08/02 20:09 No Known Allergies; cm10 - Home Meds: 20:09 amlodipine 10 mg tab 1 tab once daily [Active]; carvedilol 3.125 mg Oral tab 1 tab 2 cm10 times per day [Active]; donepezil 10 mg Oral tab 1 tab once daily [Active]; memantine 5 mg Oral tab 1 tab 2 times per day [Active]; mirtazapine 15 mg oral tablet every day at bedtime [Active]; - PMHx: 20:09 Dementia; Hypertension; cm10 - Immunization history:: Adult Immunizations up to date. - Infectious Disease History:: Denies. - Social history:: Smoking status: Patient denies any tobacco usage or history of. - Family history:: not pertinent. ROS: 08/03 05:23 Constitutional: Negative for fever, chills, and weight loss, positive generalized sp4 weakness, positive for balance disorder, positive elevated blood pressure All other systems are negative, Exam: 05:23 Constitutional: This is a well developed, well nourished patient who is awake, alert, sp4 Frail elderly female, moderate dementia Head/Face: Normocephalic, atraumatic. Eyes: Pupils equal round and reactive to light, extra-ocular motions intact. Lids and lashes normal. Conjunctiva and sclera are not injected. Cornea within normal limits. Periorbital areas with no swelling, redness, or edema. ENT: Nares patent. No nasal discharge, no septal abnormalities noted. Tympanic membranes are normal and external auditory canals are clear. Oropharynx with no redness, swelling, or masses, exudates, or evidence of obstruction, uvula midline. Mucous membranes moist. Neck: Trachea midline, no thyromegaly or masses palpated, and no cervical lymphadenopathy. Supple, full range of motion without nuchal rigidity, or vertebral point tenderness. Chest/axilla: Normal chest wall appearance and motion. Nontender with no deformity. No lesions are appreciated. Cardiovascular: Regular rate and rhythm with a normal S1 and S2. No gallops, murmurs, or rubs. Normal PMI, no JVD. No pulse deficits. Respiratory: Lungs have equal breath sounds bilaterally, clear to auscultation and percussion. No rales, rhonchi or wheezes noted. No increased work of breathing, no retractions or nasal flaring. Abdomen/GI: Soft, with normal bowel sounds. No distension or tympany. No guarding or rebound. No evidence of tenderness throughout. Back: No spinal tenderness. No costovertebral tenderness. Skin: Warm, dry with normal turgor. Normal color with no rashes, no lesions, and no evidence of cellulitis. MS/ Extremity: Pulses equal, no cyanosis. Neurovascular intact. Full, normal range of motion. Neuro: Awake and alert, GCS 15, oriented to person, Cranial nerves II-XII grossly intact. Motor strength 5/5 in all extremities. Sensory grossly intact. Demential limits examination 05:23 ECG was reviewed by the Attending Physician. EKG at 2000 normal sinus rhythm rate 82. Vital Signs: 08/02 20:07 BP 170 / 74; Pulse 78; Resp 18; Temp 97(TE); Pulse Ox 99% on R/A; Weight 50.8 kg (R); cm10 Height 4 ft. 11 in. (R); Pain 0/10; 22:21 BP 178 / 74; Pulse 72; Resp 18; Pulse Ox 98% on R/A; al5 22:30 BP 174 / 69; Pulse 67; Resp 16; Pulse Ox 98% on R/A; al5 22:45 BP 157 / 66; Pulse 65; Resp 18; Pulse Ox 98% on R/A; al5 23:00 BP 170 / 75; Pulse 69; Resp 17; Pulse Ox 97% on R/A; al5 23:15 BP 156 / 68; Pulse 72; Resp 19; Pulse Ox 96% on R/A; al5 23:30 BP 147 / 62; Pulse 73; Resp 17; Pulse Ox 97% on R/A; al5 23:45 BP 139 / 62; Pulse 75; Resp 18; Pulse Ox 97% on R/A; al5 08/03 00:00 BP 133 / 62; Pulse 76; Resp 18; Pulse Ox 97% on R/A; al5 00:15 BP 137 / 61; Pulse 75; Resp 19; Pulse Ox 96% on R/A; al5 01:30 BP 140 / 65; Pulse 73; Resp 14; Pulse Ox 96% on R/A; al5 02:00 BP 146 / 65; Pulse 73; Resp 17; Pulse Ox 96% on R/A; al5 02:30 BP 161 / 66; Pulse 75; Resp 19; Pulse Ox 95% on R/A; al5 03:00 BP 155 / 67; Pulse 73; Resp 16; Pulse Ox 95% on R/A; al5 03:30 BP 146 / 68; Pulse 76; Resp 15; Pulse Ox 96% on R/A; al5 04:00 BP 140 / 64; Pulse 73; Resp 19; Pulse Ox 96% on R/A; al5 05:00 BP 162 / 76; Pulse 77; Resp 17; Pulse Ox 96% ; al5 06:00 BP 168 / 68; Pulse 76; Resp 17; Pulse Ox 95% on R/A; al5 08/02 20:07 Body Mass Index 22.62 (50.80 kg, 149.86 cm) cm10 08/02 20:07 Pain Scale: Adult cm10 [place] Coma Score: 05:23 Eye Response: spontaneous(4). Motor Response: obeys commands(6). Verbal Response: sp4 oriented(5). Total: 15. MDM: 08/02 20:15 Medical Screening Exam initiated sp4 08/03 05:27 Differential diagnosis: acute pericarditis, anxiety, chest wall pain, cholecystitis, sp4 costochondritis, esophagitis. HEART Score: History: Slightly Suspicious (0), ECG: Normal (0), Age: > or = 65 years (2), Risk Factors: 1 or 2 risk factors (1), Troponin: < or = 1 x Normal Limit (0), Total Score = 3. Data reviewed: vital signs, nurses notes, lab test result(s), EKG, radiologic studies, CT scan, plain films. ED course: EXAMINATION: ONE VIEW CHEST XR CLINICAL INDICATION: CHEST PAIN TECHNIQUE: Frontal chest projection is submitted. Examination is limited by patient positioning and technique. COMPARISON: 10/13/2023 FINDINGS: The lungs are mildly emphysematous but clear. The heart is upper limit of normal in size. No displaced fractures identified. IMPRESSION: No acute intrathoracic abnormalities.. ED course: EXAM: CT brain without contrast HISTORY: CONFUSED COMPARISON: 01/23/2022 MRI study TECHNIQUE: Multiple contiguous axial images were obtained and a CT of the brain without contrast. Sagittal and coronal reformats were performed. One or more of the following dose reduction techniques were used: Automated exposure control, adjustment of the mA and/or kV according to patient size, and/or iterative reconstruction. FINDINGS: No evidence of hydrocephalus, intracranial hemorrhage, or extra-axial fluid collection. Moderate brain atrophy with moderate periventricular and deep white matter chronic microvascular ischemic changes present. No evidence of midline shift or areas of brain edema. The calvarium is intact. The visualized paranasal sinuses and mastoid air cells are essentially clear. IMPRESSION: No evidence of acute intracranial abnormality. . 08/02 20:08 Order name: Basic Metabolic Panel; Complete Time: 23:19 sp4 08/02 20:08 Order name: CBC with Diff; Complete Time: 23:19 sp4 08/02 20:08 Order name: LFT's; Complete Time: 23:19 sp4 08/02 20:08 Order name: Magnesium; Complete Time: 23:19 sp4 08/02 20:08 Order name: NT PRO-BNP; Complete Time: 23:19 sp4 08/02 20:08 Order name: PT-INR; Complete Time: 23:19 sp4 08/02 20:08 Order name: Troponin HS; Complete Time: 23:19 sp4 08/02 20:26 Order name: TSH; Complete Time: 23:19 sp4 08/02 20:26 Order name: T4 Free; Complete Time: 23:19 sp4 08/02 20:27 Order name: CRP; Complete Time: 23:19 sp4 08/02 20:27 Order name: Urinalysis W/Microscopic sp4 08/03 07:00 Order name: Urinalysis w/ reflexes EDMS 08/03 07:00 Order name: Basic Metabolic Panel EDMS 08/03 07:00 Order name: Basic Metabolic Panel EDMS 08/03 07:00 Order name: Troponin High Sensitivity EDMS 08/03 07:00 Order name: Troponin High Sensitivity EDMS 08/03 07:00 Order name: Troponin High Sensitivity EDMS 08/03 07:00 Order name: Troponin High Sensitivity EDMS 08/03 10:18 Order name: Urinalysis W/Microscopic EDMS 08/02 20:08 Order name: XRAY Chest (1 view); Complete Time: 23:19 sp4 08/02 20:26 Order name: CT Head Brain wo Cont; Complete Time: 23:19 sp4 08/03 07:00 Order name: Echo with Doppler EDTN 08/02 20:08 Order name: EKG; Complete Time: 20:09 sp4 08/02 20:08 Order name: Cardiac monitoring; Complete Time: 22:48 sp4 08/02 20:08 Order name: EKG - Nurse/Tech; Complete Time: 21:34 sp4 08/02 20:08 Order name: IV Saline Lock; Complete Time: 21:44 sp4 08/02 20:08 Order name: Labs collected and sent; Complete Time: 22:01 sp4 08/02 20:08 Order name: O2 Per Protocol; Complete Time: 22:48 sp4 08/02 20:08 Order name: O2 Sat Monitoring; Complete Time: 22:48 sp4 EC:23 Rate is 82 beats/min. Rhythm is regular, Normal Sinus Rhythm. QRS [place] is Normal. VT sp4 interval is normal. QRS interval is normal. QT interval is normal. No Q waves. T waves are Normal. No ST changes noted. Clinical impression: No evidence of ischemia. Interpreted by me. Reviewed by me. Administered Medications: 08/02 23:04 Drug: HydrALAZINE PO 25 mg PO once Route: PO; dc5 08/03 00:28 Follow up: Response: No adverse reaction; Blood pressure is lowered al5 08/02 23:27 CANCELLED (Physician Discretion): [id number] mg PO once sp4 Disposition Summary: 08/02/24 23:29 Hospitalization Ordered Notes: Hospitalization Status: Observation sp4 Provider: Delacruz, Darío sp4 Condition: Stable sp4 Problem: new sp4 Symptoms: have improved sp4 Bed/Room Type: Standard sp4 Location: [facility] ER HOLD(08/03/24 00:26) rv1 Room Assignment: ERHOLD-(08/03/24 00:26) rv1 Diagnosis - Muscle weakness (generalized) sp4 - Dizziness, Hypertensive Crisis, Balance disorder, Acute Dyspnea sp4 Forms: - Medication Reconciliation Form sp4 - SBAR form sp4 - Leadership Thank You Letter sp4 Signatures: Dispatcher [employer] EDMS Dora Moon rv1 Cruz Medeiros MD MD sp4 Yadira Comer, RN RN cm10 Dorys David RN RN al5 Corrections: (The following items were deleted from the chart) 20:26 20:26 THYROID STIMULAT HORMONE+C.LAB.BRZ ordered. EDMS EDMS 20:26 20:26 T4 FREE+C.LAB.BRZ ordered. EDMS EDMS 20:27 20:27 Head Brain Wo Cont+CT.RAD.BRZ ordered. EDMS EDMS 20:27 20:27 Urinalysis W/Microscopic+U.LAB.BRZ ordered. EDMS EDMS 23:27 23:22 HydrALAZINE PO 25 mg PO once ordered. sp4 sp4 08/03 00:08/02 23:29 Telemetry/MedSurg (observation) sp4 rv1 08/03 00:26 08/02 23:29 sp4 rv1
[2024-08-03] MEDS ORDERED: ONDANSETRON 4 MG/2 ML VIAL IV PRN (06:57)
[2024-08-03] MEDS ORDERED: ACETAMINOPHEN 325 MG TABLET PO PRN (06:57)
[2024-08-03] MEDS ORDERED: ALBUTEROL 2.5 MG/3 ML NEB SOL NEB PRN (06:57)
[2024-08-03] MEDS: carvediloL 6.25 MG TAB PO SCH (08:00)
[2024-08-03] MEDS: AMLODIPINE 10 MG TAB PO SCH (09:00)
[2024-08-03] MEDS: MEMANTINE HCL 10 MG TABLET PO SCH (09:00)
[2024-08-03] MEDS ORDERED: carvediloL 6.25 MG TAB ONE (09:48)
[2024-08-03] MEDS ORDERED: AMLODIPINE 10 MG TAB ONE (09:48)
[2024-08-03 10:18] LABS: Specific Gravity 1.007 (1.005-1.030); Sqamous Epithelial None Seen /HPF (None Seen); Urine Bacteria None Seen /HPF (<20); Urine Bilirubin NEGATIVE (Negative); Urine Blood Negative (Negative); Urine Clarity Clear (Clear); Urine Color Colorless (Yellow); Urine Culture Reflex Order NOT NEEDED; Urine Glucose NEGATIVE (Negative); Urine Ketones NEGATIVE (Negative); Urine Micro Reflex YN NO BILL MICROSCOPIC; Urine Nitrite NEGATIVE (Negative); Urine Protein NEGATIVE (Negative); Urine RBC None Seen /HPF (None Seen); Urine Urobilinogen Normal (Normal); Urine WBC <5 /HPF (<5)
[2024-08-03] MEDS ORDERED: NA CHLORIDE 0.9% 1,000 ML ONE (10:28)
[2024-08-03] MEDS: NA CHLORIDE 0.9% 1,000 ML IV SCH (10:30)
[2024-08-03 10:34] VITALS: O2SAT 99
[2024-08-03 11:34] VITALS: BMI 22.6
[2024-08-03] MEDS: FLU (Fluarix Triv) TS24-25(6MOS UP)/PF 45 MCG/0.5 ML Syringe IM ONE (11:45)
[2024-08-03] MEDS ORDERED: D5 0.45 NS 1,000 ML IV ONE (12:30)
--- NOTE | 2024-08-03 13:21 | ECHO ---
HEIGHT: 4 ft 11 in WEIGHT: 111 lb 15.917 oz DATE OF STUDY: 08/03/[address]: Darío Delacruz MD 2-DIMENSIONAL: YES M.MODE: YES DOPPLER: YES COLOR FLOW: YES TDS: PORTABLE: YES DEFINITY: BUBBLE STUDY: DIAGNOSIS: HYPERTENSION, CHEST PAIN CARDIAC HISTORY: CATHERIZATION: NO SURGERY: NO PROSTHETIC VALVE: NO PACEMAKER: NO MEASUREMENTS (cm) DIASTOLIC (NORMALS) SYSTOLIC (NORMALS) IVSd 0.8 (0.6-1.2) LA Diam 1.9 (1.9-4.0) LVEF 65% LVIDd 3.5 (3.5-5.7) LVIDs 2.0 (2.0-3.5) %FS LVPWd 0.9 (0.6-1.2) Ao Diam 2.0 (2.0-3.7) 2 DIMENSIONAL ASSESSMENT: RIGHT ATRIUM: NORMAL LEFT ATRIUM: NORMAL RIGHT VENTRICLE: NORMAL LEFT VENTRICLE: NORMAL TRICUSPID VALVE: MILD TRICUSPID REGURGITATION MITRAL VALVE: NORMAL PULMONIC VALVE: NORMAL AORTIC VALVE: TRADE AORTIC REGURGITATION PERICARDIAL EFFUSION: NONE AORTIC ROOT: NORMAL LEFT VENTRICULAR WALL MOTION: NORMAL DOPPLER/COLOR FLOW: GRADE I DIASTOLIC DYSFUNCTION COMMENTS: 1. NORMAL LEFT VENTRICULAR SYSTOLIC FUNCTION, EJECTION FRACTION 65%, NORMAL WALL MOTION 2. GRADE I DIASTOLIC DYSFUNCTION TECHNOLOGIST: CHAPIS FAROOQ
[2024-08-03 17:26] VITALS: BP 144/70; TEMP 97.9
[2024-08-03] MEDS ORDERED: DONEPEZIL HCL 5 MG TAB PO SCH (21:00)
--- NOTE | 2024-08-04 00:28 | HP ---
Date of Admission: 08/03/2024 Chief Complaint: High blood pressure. History Of Present Illness: This is an 88-year-old pleasant female patient, who lives at home with h er son and [id number], was brought into emergency room with high blood pressure and the patient was feeling weak and dizzy. The patient did not report any other complaints to me, but as per emerge ncy room record, she was also complaining of some chest pain and shortness of breath. With all these complaints, she came into ER late last night. She was evaluated and admitted to hospital under my s ervice. When I saw her this morning, she was in the emergency room lying in bed, not in any distress . Denied any complaints at that time of having any chest pain or shortness of breath. Denies any he adache. No nausea, no vomiting. She denies any tingling and numbness of hands or legs. No difficul ty with speech. No problem with her eye sites. Physical Examination: Vital Signs: When she first came into emergency room, blood pressure 170/74, pulse 78, respiratory r ate 18, oxygen saturation 99%. Height 4 feet 11 inches, weight 50.8 kg. General: Awake, alert, oriented, not in distress. HEENT: Head atraumatic, normocephalic. Conjunctivae nonerythematous. Sclerae white. Mouth, no thr ush or edema noted. Ears/Nose, no mass, lesion, discharge noted. Neck: Supple. No JVD, lymph nodes, bruit, thyromegaly noted. Lungs: Bilateral good equal air entry. Clear to auscultation. No rhonchi. No rales. Heart: Normal heart sounds, no murmur or gallop. Abdomen: Soft, bowel sounds normal. No guarding, rigidity, tenderness, mass, hepatosplenomegaly, dis tention, or bruit noted. Extremities: No leg edema. No calf tenderness. Skin: No rash, ulcer, cellulitis. Lymphatics: No lymph node enlargement in neck, supraclavicular, infraclavicular region. Neuro: No focal neurological deficit. Chest: Unremarkable. External Genitalia: Deferred. Rectal: Deferred. Laboratory Data: WBC 6, hemoglobin 12.5, platelets 251. Sodium 138, potassium 3.5, chloride 105, bi carb 28, BUN 11, creatinine 1.10, glucose 110. Liver function tests unremarkable. Troponin 5.6, BNP 95, TSH 6.4. EKG , chest x-ray was negative for any acute cardiopulmonary changes. Hospital Course: After the patient was evaluated in the emergency room, she was admitted to the [facility]. I saw her in the ER this morning and her home blood pressure medications were continued except I did increase the dose of carvedilol. At home, she takes 3.125 mg 2 times a day and I have increas ed the dose to 6.25 mg 2 times a day. The patient had serial cardiac enzymes done today, which came back negative and troponin is 7 and 8 on second and third set. Her echocardiogram was done today, sh ows normal ejection fraction and shows grade 1 diastolic dysfunction. The patient remain asymptomati c today and this evening she was discharged to go home in stable medical condition. Discharge Medications And Instructions: 1.Continue all prior home medication except change carvedilol 3.125 mg, the patient to take 2 tablet s by mouth 2 times a day. 2.Follow up at my office next week on Thursday which is 08/09/2024. Final Diagnoses: 1.Chest pain. 2.Hypertension, uncontrolled. 3.Senile dementia. 4.Hyperlipidemia. 5.Osteoarthritis, multiple sites. 6.Chronic obstructive pulmonary disease. Total time spent was 90 minutes that includes review of last hospital admission record from September 222023, review of current emergency room visit record, communication with ER physician, performing t shaquille's evaluation and management, and coordinating care with nursing staff today. DANN/KHANH Voice ID: [id number]
== END 2024-08-03 18:33 | disposition home or self-care (01) ==
LOC: ER 19:50 → ERHOLD 08-03 08:09
PROVIDERS: ADMIT Internal Medicine; ATTEND Internal Medicine
DX: I16.9 Hypertensive crisis, unspecified (principal); R07.9 Chest pain, unspecified; M62.81 Muscle weakness (generalized); R42 Dizziness and giddiness; R06.02 Shortness of breath; I10 Essential (primary) hypertension; F03.90 Unspecified dementia, unspecified severity, without behavioral disturbance, psychotic disturbance, mood disturbance, and anxiety; E78.5 Hyperlipidemia, unspecified; M19.90 Unspecified osteoarthritis, unspecified site; J44.9 Chronic obstructive pulmonary disease, unspecified
CPT/HCPCS: 93005; 93306; 85025; 81001; 80048; 36415; 83735; 85610; 80076; 84443; 84484 ×3; 84439; 83880; 86140; 70450; 71045; J7799; J7030; G0378 ×2; 99285